=== PATIENT | male | born 1985 ===

== ENCOUNTER 2021-06-22 02:16 | Emergency (ER) | payer BC, OTHER ==
--- NOTE | 2021-06-22 04:11 | EDM.PDOC ---
ED HPI GENERAL MEDICAL PROBLEM - General Chief Complaint: General Stated Complaint: BLOOD TEST Time Seen by Provider: 06/22/21 02:30 Source of Information: Reports: Patient History Limitations: Reports: No Limitations, Intoxication - History of Present Illness INITIAL COMMENTS - FREE TEXT/NARRATIVE: c/o blackout pt and drinking, they live 8 miles from [place] and 7 miles from [place]. A college son drove them from their home to a restaurant in [place] where they ate dinner and drank alcohol pt's reported they drank 4-5 vodkas each, pt reported to RN that he drank 12 beers reports that they do not drink daily, pt states he drinks 2-3 beers daily and "might as well admit it" their son and a friend left the restaurant before they did, someone else drove them home although they do not remember who drove them home or how they got home they are concerned that they cannot remember what happened, says this has not happened before, concerned that someone may have slipped Rohypnol (flunitrazepam) sedative into their drinks a friend is with them who drove them here to the ED - Related Data Allergies Allergy/AdvReac Type Severity Reaction Status Date / Time No Known Allergies Allergy Verified 06/22/21 02:33 Home Meds: Home Meds NK [No Known Home Meds] 06/22/21 [History] Social & Family History - Tobacco Use Tobacco Use Status *Q: Never Tobacco User - Caffeine Use Caffeine Use: Reports: Coffee, Soda - Alcohol Use Days Per Week of Alcohol Use: 7 Number of Drinks Per Day: 3 Total Drinks Per Week: 21 - Recreational Drug Use Recreational Drug Use: No ED ROS GENERAL - Review of Systems Review Of Systems: See Below Constitutional: Reports: No Symptoms, Other (denies any systems except memory gap) HEENT: Reports: No Symptoms Respiratory: Reports: No Symptoms Cardiovascular: Reports: No Symptoms Endocrine: Reports: No Symptoms GI/Abdominal: Reports: No Symptoms : Reports: No Symptoms Musculoskeletal: Reports: No Symptoms Skin: Reports: No Symptoms Neurological: Reports: No Symptoms Psychiatric: Reports: No Symptoms Hematologic/Lymphatic: Reports: No Symptoms Immunologic: Reports: No Symptoms ED EXAM, GENERAL - Physical Exam Exam: See Below Exam Limited By: No Limitations General Appearance: Alert, No Apparent Distress Ears: Hearing Grossly Normal Nose: Normal Inspection Throat/Mouth: Normal Inspection, Normal Voice, No Airway Compromise Head: Atraumatic, Normocephalic, Other (cheeks flushed) Neck: Normal Inspection, Supple, Non-Tender Respiratory/Chest: No Respiratory Distress, Lungs Clear, Normal Breath Sounds, No Accessory Muscle Use Cardiovascular: Regular Rate, Rhythm, No Edema, No Gallop, No Murmur GI/Abdominal: Soft, Non-Tender Back Exam: Normal Inspection Extremities: Normal Inspection, Normal Range of Motion, Non-Tender, No Pedal Edema Neurological: Alert, CN II-XII Intact, No Motor/Sensory Deficits Skin Exam: Warm, Dry, Intact, Normal Color, No Rash Lymphatic: No Adenopathy Course - Vital Signs Last Recorded V/S: Last Vital Signs Temp 36.7 C 06/22/21 02:34 Pulse 95 06/22/21 02:34 Resp 18 06/22/21 02:34 BP 143/97 H 06/22/21 02:34 Pulse Ox 94 L 06/22/21 02:34 - Orders/Labs/Meds Labs: Laboratory Tests 06/22/21 06/22/21 Range/Units 03:04 03:19 Urine Opiates Screen Negative (NEGATIVE) Ur Oxycodone Screen Negative (NEGATIVE) Ur Propoxyphene Screen Negative (NEGATIVE) Ur Barbituates Screen Negative (NEGATIVE) Ur Tricyclics Screen Negative (NEGATIVE) Ur Phencyclidine Scrn Negative (NEGATIVE) Ur Amphetamine Screen Negative (NEGATIVE) Urine MDMA Screen Negative (NEGATIVE) U Benzodiazepines Scrn Negative (NEGATIVE) U Cocaine Metab Screen Negative (NEGATIVE) U Marijuana (THC) Screen Negative (NEGATIVE) Ethyl Alcohol 0.32 H* (<0.03) % - Re-Assessments/Exams Free Text/Narrative Re-Assessment/Exam: 06/22/21 04:20 need for alc tx discussed, that blackouts are a threshold for alc tx Departure - Departure Time of Disposition: 04:05 Disposition: Home, Self-Care 01 Condition: Fair Clinical Impression: Blackout spell, Alcohol intoxication - Discharge Information *PRESCRIPTION DRUG MONITORING PROGRAM REVIEWED*: Not Applicable *COPY OF PRESCRIPTION DRUG MONITORING REPORT IN PATIENT SPIKE: Not Applicable Instructions: Binge-Drinking Information, Adult, Alcohol Intoxication Referrals: PCP,None [Primary Care Provider] - Forms: ED Department Discharge Additional Instructions: Your alcohol level is 320, which is 4 times the legal limit of 80. Blackout spells occur when alcohol level are over 160 and occur 50% of the time when they are over 220. Alcohol levels drop about 20 points per hour, which will take to approximately 3:15 pm before you can legally drive. One of the criteria for alcohol impairment and need for alcohol treatment is blackout spells. See Nano Ramirez or Dr Kelly in the next week for further evaluation and recommendations. Sepsis Event Note (ED) - Evaluation Sepsis Screening Result: No Definite Risk - Focused Exam Vital Signs: Vital Signs Temp Pulse Resp BP Pulse Ox 06/22/21 02:34 36.7 C 95 18 143/97 H 94 L
== END 2021-06-22 04:11 | disposition home or self-care (01) ==
LOC: FB.ED 02:16
DX: F10.129 Alcohol abuse with intoxication, unspecified (principal); Y90.0 Blood alcohol level of less than 20 mg/100 ml
CPT/HCPCS: 36415; 80305-QW; 80307; 99284

== ENCOUNTER 2021-11-02 16:56 | Inpatient (IN) | payer OTHER ==
[2021-11-02] MEDS ORDERED: Morphine 4 MG/ML VIAL IVPUSH STA (17:14)
[2021-11-02] MEDS ORDERED: Ondansetron 4 MG/2 ML SDV IVPUSH STA (17:14)
[2021-11-02] MEDS ORDERED: Sodium Chloride 0.9% 1,000 ML IV SCH (17:15)
[2021-11-02] MEDS ORDERED: Iopamidol 755 MG/ML 150 ML Bottle IV ONE (17:19)
[2021-11-02] MEDS: Sodium Chloride 0.9% 10 ML Syringe FLUSH PRN (17:25)
--- NOTE | 2021-11-02 17:26 | EDM.PDOC ---
ED HPI GENERAL MEDICAL PROBLEM - General Chief Complaint: Abdominal Pain Stated Complaint: ABD PAIN Time Seen by Provider: 11/02/21 17:00 Source of Information: Reports: Patient History Limitations: Reports: No Limitations - History of Present Illness INITIAL COMMENTS - FREE TEXT/NARRATIVE: Patient is a 36 YO WM who presented to the ED because of abdominal pain which started at 0400. The pain is cramping, 9/10, with associated nausea but no vomiting.The pain is over the RLQ/LLQ and suprapubic area. He is otherwise healthy and is not on any medications.There is no fever but has chills. No urinary symptoms or changes in bowel movement. Lower abdomen Pain Score (Numeric/FACES): 9 - Related Data Allergies Allergy/AdvReac Type Severity Reaction Status Date / Time No Known Allergies Allergy Verified 11/02/21 17:10 Home Meds: Home Meds NK [No Known Home Meds] 06/22/21 [History] Social & Family History - Caffeine Use Caffeine Use: Reports: Coffee, Soda ED ROS GENERAL - Review of Systems Review Of Systems: See Below Constitutional: Reports: No Symptoms HEENT: Reports: No Symptoms Respiratory: Reports: No Symptoms Cardiovascular: Reports: No Symptoms Endocrine: Reports: No Symptoms GI/Abdominal: Reports: Abdominal Pain, Nausea Skin: Reports: No Symptoms Neurological: Reports: No Symptoms Psychiatric: Reports: No Symptoms Hematologic/Lymphatic: Reports: No Symptoms ED EXAM, GI/ABD - Physical Exam Exam: See Below Exam Limited By: No Limitations General Appearance: Alert Ears: Normal External Exam, Normal Canal, Hearing Grossly Normal Nose: Normal Inspection, Normal Mucosa, No Blood Throat/Mouth: Normal Inspection, Normal Lips, Normal Teeth, Normal Gums Head: Atraumatic, Normocephalic Neck: Normal Inspection, Supple, Non-Tender, Full Range of Motion Respiratory/Chest: No Respiratory Distress, Lungs Clear, Normal Breath Sounds, No Accessory Muscle Use, Chest Non-Tender Cardiovascular: Normal Peripheral Pulses, Regular Rate, Rhythm, No Edema, No Gallop, No JVD, No Murmur, No Rub GI/Abdominal Exam: Normal Bowel Sounds, Soft, No Organomegaly, No Distention, No Abnormal Bruit, Other (tenderness over the RLQ/LLQ and suprpubic area) Extremities: Normal Inspection, Normal Range of Motion, Non-Tender, No Pedal Edema, Normal Capillary Refill Neurological: Alert, Oriented, CN II-XII Intact, Normal Cognition, Normal Gait, Normal Reflexes, No Motor/Sensory Deficits Psychiatric: Normal Affect, Normal Mood Skin Exam: Warm, Intact, Normal Color Lymphatic: No Adenopathy Course - Vital Signs Text/Narrative:: Lab/CT abd pelvis result- NS 1 L bolus Zofran 4 mg IV x1 Morphine 4 mg IV x1 Dilaudid 1 mg IV x1 Surgery consult was done with Dr. West of [place] who suggested conservative management for now: IVF,IV antibiotics, antiemetics and pain control. NPO then advance to soft diet. He will have a colonoscopy as an outpatient. Last Recorded V/S: Last Vital Signs Temp 36.8 C 11/03/21 06:45 Pulse 91 11/03/21 04:00 Resp 18 11/03/21 04:00 BP 116/72 11/03/21 04:00 Pulse Ox 94 L 11/03/21 04:00 - Orders/Labs/Meds Orders: Active Orders 24 hr Category Date Time Status Patient Status [ADT] Routine ADT 11/02/21 18:27 Active Oxygen Therapy [RC] PRN Care 11/02/21 18:27 Active Pulse Oximetry [RC] PRN Care 11/02/21 18:28 Active VTE/DVT Education [RC] Per Unit Routine Care 11/02/21 18:27 Active Vital Signs [RC] Q4H Care 11/02/21 18:27 Active Acetaminophen/oxyCODONE [Percocet 325-5 MG] Med 11/02/21 18:26 Active 2 tab PO Q4H PRN HYDROmorphone [Dilaudid] Med 11/02/21 18:26 Active 1 mg IVPUSH Q4H PRN Ketorolac [Toradol] Med 11/02/21 18:26 Active 30 mg IVPUSH Q8H PRN Ondansetron [Zofran] Med 11/02/21 18:26 Active 4 mg IV Q4H PRN Sodium Chloride 0.9% [Normal Saline] 1,000 ml Med 11/02/21 17:15 Active IV ASDIRECTED Sodium Chloride 0.9% [Normal Saline] 1,000 ml Med 11/02/21 18:30 Active IV ASDIRECTED Sodium Chloride 0.9% [Saline Flush] Med 11/02/21 17:13 Active 10 ml FLUSH ASDIRECTED PRN Saline Lock Insert [OM.PC] Routine Oth 11/02/21 17:13 Ordered Sequential Compression Device [OM.PC] Per Unit Routine Oth 11/02/21 18:28 Ordered Resuscitation Status Routine Resus Stat 11/02/21 18:26 Ordered Medication Orders Hydromorphone HCl (Hydromorphone 2 Mg/Ml Sdv) 1 mg IVPUSH Q4H PRN PRN Reason: Pain Sodium Chloride (Normal Saline) 1,000 mls @ 999 mls/hr IV ASDIRECTED [facility] Last Admin: 11/02/21 17:25 Dose: 999 mls/hr Documented by: JUAN JOSÉ Sodium Chloride (Normal Saline) 1,000 mls @ 125 mls/hr IV ASDIRECTED [facility] Last Admin: 11/03/21 07:35 Dose: 125 mls/hr Documented by: Infusion: 11/03/21 07:35 Dose: 125 mls/hr Documented by: Admin: 11/03/21 03:05 Dose: 125 mls/hr Documented by: Infusion: 11/03/21 03:05 Dose: 125 mls/hr Documented by: Admin: 11/02/21 18:35 Dose: 125 mls/hr Documented by: JUAN JOSÉ Piperacillin Sod/Tazobactam (Sod 4.5 gm/ Sodium Chloride) 100 mls @ 200 mls/hr IV Q6H [facility] Last Admin: 11/03/21 07:36 Dose: 200 mls/hr Documented by: Admin: 11/03/21 01:30 Dose: 200 mls/hr Documented by: LANCE Ketorolac Tromethamine (Ketorolac 30 Mg/Ml Sdv) 30 mg IVPUSH Q8H PRN PRN Reason: Pain Stop: 11/07/21 18:31 Last Admin: 11/02/21 19:45 Dose: 30 mg Documented by: JUAN JOSÉ Ondansetron HCl (Ondansetron 4 Mg/2 Ml Sdv) 4 mg IV Q4H PRN PRN Reason: Nausea/Vomiting Oxycodone/Acetaminophen (Acetaminophen/Oxycodone 325-5 Mg Tab) 2 tab PO Q4H PRN PRN Reason: Pain (moderate 4-6) Last Admin: 11/03/21 05:41 Dose: 2 tab Documented by: Admin: 11/03/21 00:13 Dose: 2 tab Documented by: LANCE Sodium Chloride (Sodium Chloride 0.9% 10 Ml Syringe) 10 ml FLUSH ASDIRECTED PRN PRN Reason: Keep Vein Open Last Admin: 11/02/21 17:25 Dose: 10 ml Documented by: JUAN JOSÉ Labs: Laboratory Tests 11/02/21 Range/Units 18:15 Urine Color Yellow (YELLOW) Urine Appearance Slightly cloudy (CLEAR) Urine pH 6.0 (5.0-6.5) Ur Specific [place] 1.020 (1.010-1.025) Urine Protein Negative (NEGATIVE) mg/dL Urine Glucose (UA) Normal (NORMAL) mg/dL Urine Ketones Negative (NEGATIVE) mg/dL Urine Occult Blood Negative (NEGATIVE) Urine Nitrite Negative (NEGATIVE) Urine Bilirubin Negative (NEGATIVE) Urine Urobilinogen 1 H (NEGATIVE) mg/dL Ur Leukocyte Esterase Negative (NEGATIVE) Urine RBC 0-5 (0-5) Urine WBC 0-5 (0-5) Ur Squamous Epith Cells Occasional (NS,R,O) Urine Bacteria Few H (NS) Meds: Medications Generic Name Dose Route Start Last Admin Trade Name Freq PRN Reason Stop Dose Admin Hydromorphone HCl 1 mg 11/02/21 18:26 Hydromorphone 2 Mg/Ml Sdv IVPUSH Q4H PRN Pain Sodium Chloride 1,000 mls @ 999 mls/hr 11/02/21 17:15 11/02/21 17:25 Normal Saline IV 999 mls/hr ASDIRECTED DIANE Administration Sodium Chloride 1,000 mls @ 125 mls/hr 11/02/21 18:30 11/03/21 07:35 Normal Saline IV 125 mls/hr ASDIRECTED DIANE Administration Piperacillin Sod/Tazobactam 100 mls @ 200 mls/hr 11/03/21 02:00 11/03/21 07:36 Sod 4.5 gm/ Sodium Chloride IV 200 mls/hr Q6H DIANE Administration Ketorolac Tromethamine 30 mg 11/02/21 18:26 11/02/21 19:45 Ketorolac 30 Mg/Ml Sdv IVPUSH 11/07/21 18:31 30 mg Q8H PRN Administration Pain Ondansetron HCl 4 mg 11/02/21 18:26 Ondansetron 4 Mg/2 Ml Sdv IV Q4H PRN Nausea/Vomiting Oxycodone/Acetaminophen 2 tab 11/02/21 18:26 11/03/21 05:41 Acetaminophen/Oxycodone 325-5 Mg Tab PO 2 tab Q4H PRN Administration Pain (moderate 4-6) Sodium Chloride 10 ml 11/02/21 17:13 11/02/21 17:25 Sodium Chloride 0.9% 10 Ml Syringe FLUSH 10 ml ASDIRECTED PRN Administration Keep Vein Open Discontinued Medications Generic Name Dose Route Start Last Admin Trade Name Freq PRN Reason Stop Dose Admin Hydromorphone HCl 2 mg 11/02/21 18:03 11/02/21 20:19 Hydromorphone 2 Mg/Ml Sdv IVPUSH 11/02/21 18:04 Not Given NOW STA Hydromorphone HCl 1 mg 11/02/21 18:04 11/02/21 18:26 Hydromorphone 2 Mg/Ml Sdv IVPUSH 11/02/21 18:05 1 mg NOW STA Administration Piperacillin Sod/Tazobactam 100 mls @ 200 mls/hr 11/02/21 18:30 11/02/21 1 9:47 Sod 4.5 gm/ Sodium Chloride IV 200 mls/hr Q6H DIANE Administration Iopamidol 150 ml 11/02/21 17:19 11/02/21 17:46 Iopamidol 755 Mg/Ml 150 Ml Bottle IV 11/02/21 17:20 138 ml ONETIME ONE Administration Morphine Sulfate 4 mg 11/02/21 17:14 11/02/21 17:27 Morphine 4 Mg/Ml Vial IVPUSH 11/02/21 17:15 4 mg NOW STA Administration Ondansetron HCl 4 mg 11/02/21 17:14 11/02/21 17:25 Ondansetron 4 Mg/2 Ml Sdv IVPUSH 11/02/21 17:15 4 mg NOW STA Administration Departure - Departure Time of Disposition: 18:30 Disposition: Refer to Observation Condition: Good Clinical Impression: Diverticulitis, Colitis - Discharge Information Sepsis Event Note (ED) - Evaluation Sepsis Screening Result: Possible Sepsis Risk - My Orders Last 24 Hours: My Active Orders 11/02/21 17:13 Sodium Chloride 0.9% [Saline Flush] 10 ml FLUSH ASDIRECTED PRN Saline Lock Insert [OM.PC] Routine 11/02/21 17:15 Sodium Chloride 0.9% [Normal Saline] 1,000 ml IV ASDIRECTED 11/02/21 18:26 Acetaminophen/oxyCODONE [Percocet 325-5 MG] 2 tab PO Q4H PRN HYDROmorphone [Dilaudid] 1 mg IVPUSH Q4H PRN Ketorolac [Toradol] 30 mg IVPUSH Q8H PRN Ondansetron [Zofran] 4 mg IV Q4H PRN Resuscitation Status Routine 11/02/21 18:27 Patient Status [ADT] Routine Oxygen Therapy [RC] PRN VTE/DVT Education [RC] Per Unit Routine Vital Signs [RC] Q4H 11/02/21 18:28 Pulse Oximetry [RC] PRN Sequential Compression Device [OM.PC] Per Unit Routine 11/02/21 18:30 Sodium Chloride 0.9% [Normal Saline] 1,000 ml IV ASDIRECTED - Assessment/Plan Last 24 Hours: My Active Orders 11/02/21 17:13 Sodium Chloride 0.9% [Saline Flush] 10 ml FLUSH ASDIRECTED PRN Saline Lock Insert [OM.PC] Routine 11/02/21 17:15 Sodium Chloride 0.9% [Normal Saline] 1,000 ml IV ASDIRECTED 11/02/21 18:26 Acetaminophen/oxyCODONE [Percocet 325-5 MG] 2 tab PO Q4H PRN HYDROmorphone [Dilaudid] 1 mg IVPUSH Q4H PRN Ketorolac [Toradol] 30 mg IVPUSH Q8H PRN Ondansetron [Zofran] 4 mg IV Q4H PRN Resuscitation Status Routine 11/02/21 18:27 Patient Status [ADT] Routine Oxygen Therapy [RC] PRN VTE/DVT Education [RC] Per Unit Routine Vital Signs [RC] Q4H 11/02/21 18:28 Pulse Oximetry [RC] PRN Sequential Compression Device [OM.PC] Per Unit Routine 11/02/21 18:30 Sodium Chloride 0.9% [Normal Saline] 1,000 ml IV ASDIRECTED
[2021-11-02] MEDS ORDERED: HYDROmorphone 2 MG/ML SDV IVPUSH STA ×2 (18:03→18:04)
[2021-11-02] MEDS ORDERED: HYDROmorphone 2 MG/ML SDV IVPUSH PRN (18:26)
[2021-11-02] MEDS ORDERED: Ondansetron 4 MG/2 ML SDV IV PRN (18:26)
[2021-11-02] MEDS ORDERED: Piperacillin/Tazobactam 4.5 GM in Sodium Chloride 0.9% 100 ML IV SCH (18:30)
[2021-11-02] MEDS: Sodium Chloride 0.9% 1,000 ML IV SCH (18:35)
--- NOTE | 2021-11-02 18:49 | CT ---
INDICATION: Right lower quadrant, left lower quadrant, suprapubic pain, elevated white blood count. CT ABDOMEN AND PELVIS WITH CONTRAST: Spiral 3.75 mm axial sections were obtained through the abdomen and pelvis with 138 mL [id number] at 2 mL/second with sagittal and coronal reconstructions, 11/02/21 - no comparisons. TOTAL EXAM DLP: 1889.88 mGy/cm. Lower lung roberts and pleural spaces visualized appeared normal. The heart did not appear enlarged. No pericardial effusion was seen. The liver, gallbladder, adrenal glands, spleen, pancreas, and for the most part, kidneys appeared normal (a tiny low-density lesion in the lower pole of the right kidney may represent a tiny cyst). Retroperitoneal lymphadenopathy is mild and nonspecific, but could be related to previous infection. The appendix was visualized on axial images 95 through 109 and was mildly prominent in diameter, measuring up to 8.5 mm. However, no periappendiceal fat stranding was noted to strongly suggest appendicitis. There is however noted in the sigmoid colon, what appears to be a diverticulum with marked thickening of the wall of the sigmoid colon extending into the rectosigmoid area slightly and with extensive pericolonic fat stranding with several air bubbles and a very small linear collection of fluid, which could represent the beginnings of an abscess seen on axial images 97 through 107. Findings may represent colitis with perforation or possibly diverticulitis with perforation. It is involving a long-segment of the sigmoid colon. No gross free air was seen, however - free air was limited to bubbles in the area of fat stranding and increased linear density. No gross ascites was seen, but there is some minimal free fluid posteriorly and inferiorly in the pelvis, which may be related to this process. There is also thickening of the wall of the urinary bladder. This could represent cystitis and should be correlated clinically. No definite herniation is seen. No additional mass lesions, organomegaly or free fluid collections were identified in the abdomen or pelvis. IMPRESSION: 1. Findings felt to be most compatible with colitis, possibly with diverticulitis and with peritonitis and very minimal abscess formation with perforation suggested versus gas-forming organism infection. No gross perforation was seen, as there is no free air extending anteriorly in the abdomen. There is, however, peritonitis and possible beginnings of a small abscess adjacent to this process, as noted above. 2. Thickened wall of urinary bladder could represent cystitis. Report was called to Dr. Morales at 1815 hours, 11/02/21. [facility]
[2021-11-02] MEDS: Ketorolac 30 MG/ML SDV IVPUSH PRN (19:45)
[2021-11-03] MEDS: Acetaminophen/oxyCODONE 325-5 MG Tab PO PRN ×5 (00:13→20:29)
[2021-11-03] MEDS: Piperacillin/Tazobactam 4.5 GM in Sodium Chloride 0.9% 100 ML IV SCH ×4 (01:30→20:28)
[2021-11-03] MEDS: Sodium Chloride 0.9% 1,000 ML IV SCH ×2 (03:05→07:35)
[2021-11-03] MEDS: Ketorolac 30 MG/ML SDV IVPUSH PRN ×2 (08:15→16:18)
--- NOTE | 2021-11-03 08:21 | PCM.HP.2 ---
H&P History of Present Illness - General Date of Service: 11/03/21 Admit Problem/Dx: Admission Diagnosis/Problem Admission Diagnosis/Problem Diverticulitis Source of Information: Patient, Old Records History Limitations: Reports: No Limitations - History of Present Illness Initial Comments - Free Text/Narative: This is a healthy 36-year-old male patient that 4 AM yesterday morning woke up with some abdominal pain, around the lower abdomen. He said he went back to sleep and then he got up and went to the bathroom had a bowel movement which was normal. After that he had really bad pain. He was seen in the clinic by Haydee Mcnulty and then sent to the ER to rule out an appendectomy. Had a CT scan that showed peritonitis possible diverticulitis with minimal abscess formation and perforation suggested. The ER doc call the surgeon in [place] who reviewed everything and told to put on n.p.o. and put on antibiotics for now and then observe. Patient is on pain pills and he says his feel a bit better. He says when he goes off the pain pills he has fevers and chills and sweats. He has no dysuria, pyuria, hematuria. No diarrhea or blood in his stool. History of div erticulitis. He says azeb had it. Lower abdomen Pain Score (Numeric/FACES): 3 - Related Data Allergies/Adverse Reactions: Allergies Allergy/AdvReac Type Severity Reaction Status Date / Time No Known Allergies Allergy Verified 11/02/21 17:10 Home Medications: Home Meds NK [No Known Home Meds] 06/22/21 [History] Past Medical History Musculoskeletal History: Reports: None Endocrine/Metabolic History: Reports: Obesity/BMI 30+ - Past Surgical History HEENT Surgical History: Reports: Oral Surgery, Tonsillectomy Other HEENT Surgeries/Procedures: [place] tooth removal Endocrine Surgical History: Reports: None Musculoskeletal Surgical History: Reports: ORIF Other Musculoskeletal Surgeries/Procedures:: L ankle repair Social & Family History - Family History Family Medical History: No Pertinent Family History - Tobacco Use Tobacco Use Status *Q: Never Tobacco User Second Hand Smoke Exposure: No - Caffeine Use Caffeine Use: Reports: Soda Other Caffeine Use: at least 3 soda in a week - Alcohol Use Days Per Week of Alcohol Use: 3 Number of Drinks Per Day: 6 Total Drinks Per Week: 18 - Recreational Drug Use Recreational Drug Use: No H&P Review of Systems - Review of Systems: Review Of Systems: See Below General: Reports: Fever, Chills, Fatigue, Diaphoresis HEENT: Reports: No Symptoms Pulmonary: Reports: No Symptoms Cardiovascular: Reports: No Symptoms Gastrointestinal: Reports: Abdominal Pain Genitourinary: Reports: No Symptoms Musculoskeletal: Reports: No Symptoms Skin: Reports: No Symptoms Psychiatric: Reports: No Symptoms Neurological: Reports: No Symptoms Hematologic/Lymphatic: Reports: No Symptoms Immunologic: Reports: No Symptoms Exam - Exam Exam: See Below - Vital Signs Vital Signs: Last Vital Signs Temp 98.2 F 11/03/21 06:45 Pulse 91 11/03/21 04:00 Resp 18 11/03/21 04:00 BP 116/72 11/03/21 04:00 Pulse Ox 94 L 11/03/21 04:00 Weight: 268 lb 1 oz - Exam General: Alert, Oriented HEENT: Hearing Intact, Posterior Pharynx Clear, TMs Clear Neck: Supple, Trachea Midline Lungs: Clear to Auscultation, Normal Respiratory Effort Cardiovascular: Regular Rate, Regular Rhythm. No: Systolic Murmur GI/Abdominal Exam: Soft, Other (Mild pain in the lower quadrants right, left, suprapubic. No rebound or guarding. He is on pain medication at this time.). No: Normal Bowel Sounds, Distended Back Exam: Normal Inspection Extremities: Normal Inspection, Non-Tender, No Pedal Edema Skin: Warm, Dry, Intact Neurological: Normal Speech Neuro Extensive - Mental Status: Alert, Oriented x3, Normal Mood/Affect, Normal Cognition Psychiatric: Alert, Normal Affect, Normal Mood - Patient Data Lab Results Last 24 hrs: Laboratory Results - last 24 hr 11/02/21 11/03/21 11/03/21 Range/Units 18:15 06:25 06:25 WBC 15.4 H (3.2-10.1) x10-3/uL RBC 3.25 L (3.90-5.90) x10(6)uL Hgb 11.2 L (12.9-17.7) g/dL Hct 33.4 L (38.3-50.1) % MCV 102.8 H (80.8-98.7) fL MCH 34.4 H (27.0-33.3) pg MCHC 33.4 (28.7-35.3) g/dL RDW 12.8 (12.4-15.0) % Plt Count 224 (117-477) x10(3)uL MPV 7.2 (6.7-11.0) fL Add Manual Diff Yes Neutrophils % (Manual) 81 (46-82) % Lymphocytes % (Manual) 10 L (13-37) % Monocytes % (Manual) 9 (4-12) % Sodium 135 (135-145) mmol/L Potassium 3.3 L (3.5-5.3) mmol/L Chloride 99 L (100-110) mmol/L Carbon Dioxide 27 (21-32) mmol/L BUN 9 (7-18) mg/dL Creatinine 0.9 (0.70-1.30) mg/dL Est Cr Clr Drug Dosing 140.65 mL/min Estimated GFR (MDRD) > 60 (>60) BUN/Creatinine Ratio 10.0 (9-20) Glucose 128 H (80-116) mg/dL Calcium 8.1 L (8.6-10.2) mg/dL Urine Color Yellow (YELLOW) Urine Appearance Slightly cloudy (CLEAR) Urine pH 6.0 (5.0-6.5) Ur Specific [place] 1.020 (1.010-1.025) Urine Protein Negative (NEGATIVE) mg/dL Urine Glucose (UA) Normal (NORMAL) mg/dL Urine Ketones Negative (NEGATIVE) mg/dL Urine Occult Blood Negative (NEGATIVE) Urine Nitrite Negative (NEGATIVE) Urine Bilirubin Negative (NEGATIVE) Urine Urobilinogen 1 H (NEGATIVE) mg/dL Ur Leukocyte Esterase Negative (NEGATIVE) Urine RBC 0-5 (0-5) Urine WBC 0-5 (0-5) Ur Squamous Epith Cells Occasional (NS,R,O) Urine Bacteria Few H (NS) Result Diagrams: 11/03/21 06:25 11/03/21 06:25 Sepsis Event Note - Evaluation Sepsis Screening Result: No Definite Risk - Focused Exam Vital Signs: Vital Signs Temp Pulse Resp BP Pulse Ox 11/03/21 06:45 98.2 F 11/03/21 04:00 98.9 F 91 18 116/72 94 L 11/03/21 01:30 98.1 F 11/03/21 00:15 98.9 F 99 16 129/81 93 L - Problem List (1) Colitis SNOMED Code(s): 97826467 ICD Code: K52.9 - NONINFECTIVE GASTROENTERITIS AND COLITIS, UNSPECIFIED Status: Acute Current Visit: Yes (2) Diverticulitis SNOMED Code(s): 979801753 ICD Code: K57.92 - DVTRCLI OF INTEST, PART UNSP, W/O PERF OR ABSCESS W/O BLEED Status: Acute Current Visit: Yes Problem List Initiated/Reviewed/Updated: Yes Orders Last 24hrs: Active Orders 24 hr Category Date Time Status Patient Status [ADT] Routine ADT 11/02/21 18:27 Active Notify Provider Consults [RC] ASDIRECTED Care 11/03/21 08:17 Ordered Oxygen Therapy [RC] PRN Care 11/02/21 18:27 Active Pulse Oximetry [RC] PRN Care 11/02/21 18:28 Active VTE/DVT Education [RC] Per Unit Routine Care 11/02/21 18:27 Active Vital Signs [RC] Q4H Care 11/02/21 18:27 Active Consult to Physician [CONS] Routine Cons 11/03/21 08:16 Ordered NPO [Nothing Per Oral Diet] [DIET] Diet 11/03/21 Breakfast Active BASIC METABOLIC PANEL,BMP [CHEM] AM Lab 11/04/21 06:00 Ordered CBC WITH AUTO DIFF [HEME] AM Lab 11/04/21 05:11 Ordered Acetaminophen/oxyCODONE [Percocet 325-5 MG] Med 11/02/21 18:26 Active 2 tab PO Q4H PRN Ketorolac [Toradol] Med 11/02/21 18:26 Active 30 mg IVPUSH Q8H PRN NS + KCl 20mEq/L [Normal Saline with 20 mEq KCl] 1,000 Med 11/03/21 08:15 Ordered ml IV ASDIRECTED Ondansetron [Zofran] Med 11/02/21 18:26 Active 4 mg IV Q4H PRN Piperacillin/Tazobactam [Zosyn] 4.5 gm Med 11/03/21 02:00 Active Sodium Chloride 0.9% [Normal Saline AdvBag] 100 ml IV Q6H Sodium Chloride 0.9% [Saline Flush] Med 11/02/21 17:13 Active 10 ml FLUSH ASDIRECTED PRN Saline Lock Insert [OM.PC] Routine Oth 11/02/21 17:13 Ordered Sequential Compression Device [OM.PC] Per Unit Routine Oth 11/02/21 18:28 Ordered Resuscitation Status Routine Resus Stat 11/02/21 18:26 Ordered Medication Orders Piperacillin Sod/Tazobactam (Sod 4.5 gm/ Sodium Chloride) 100 mls @ 200 mls/hr IV Q6H [facility] Last Admin: 11/03/21 07:36 Dose: 200 mls/hr Documented by: Admin: 11/03/21 01:30 Dose: 200 mls/hr Documented by: LANCE Potassium Chloride/Sodium Chloride (Normal Saline With 20 Meq Kcl) 1,000 mls @ 125 mls/hr IV Q8H [facility] Ketorolac Tromethamine (Ketorolac 30 Mg/Ml Sdv) 30 mg IVPUSH Q8H PRN PRN Reason: Pain Stop: 11/07/21 18:31 Last Admin: 11/03/21 08:15 Dose: 30 mg Documented by: Admin: 11/02/21 19:45 Dose: 30 mg Documented by: JUAN JOSÉ Ondansetron HCl (Ondansetron 4 Mg/2 Ml Sdv) 4 mg IV Q4H PRN PRN Reason: Nausea/Vomiting Oxycodone/Acetaminophen (Acetaminophen/Oxycodone 325-5 Mg Tab) 2 tab PO Q4H PRN PRN Reason: Pain (moderate 4-6) Last Admin: 11/03/21 05:41 Dose: 2 tab Documented by: Admin: 11/03/21 00:13 Dose: 2 tab Documented by: LANCE Sodium Chloride (Sodium Chloride 0.9% 10 Ml Syringe) 10 ml FLUSH ASDIRECTED PRN PRN Reason: Keep Vein Open Last Admin: 11/02/21 17:25 Dose: 10 ml Documented by: JUAN JOSÉ Assessment/Plan Comment:: 1. Admit as observation. 2. Reviewed the ER notes and the conversation with surgery. I will consult our local surgeon. 3. N.p.o. until it is okay for him to eat per surgery. 4. Continue the Percocet for pain which is working for him. 5. His potassium slightly low so switch the fluids from normal saline to normal saline with 20 KCl. 6. Recheck CBC and panel late in the a.m. 7. He can be up ad nancy. - Mortality Measure Prognosis:: Good
[2021-11-03] MEDS: NS + KCl 20mEq/L 1,000 ML IV SCH ×3 (08:26→23:55)
--- NOTE | 2021-11-03 15:01 | PCM.CONS ---
H&P History of Present Illness - General Date of Service: 11/03/21 Admit Problem/Dx: Admission Diagnosis/Problem Admission Diagnosis/Problem Diverticulitis Source of Information: Patient, Old Records History Limitations: Reports: No Limitations - History of Present Illness Initial Comments - Free Text/Narative: Felling muck better today, getting pain meds. Pain more localized to LLQ today Onset of Symptoms: Reports: Sudden Symptom Onset Date: 11/02/21 Symptom Onset Time: 04:00 Location: Reports: Abdomen (lower bilaterally) Severity: Severe Associated Symptoms: Reports: Other (bladder pressure) Lower abdomen Pain Score (Numeric/FACES): 2 - Related Data Allergies/Adverse Reactions: Allergies Allergy/AdvReac Type Severity Reaction Status Date / Time No Known Allergies Allergy Verified 11/02/21 17:10 Home Medications: Home Meds NK [No Known Home Meds] 06/22/21 [History] Past Medical History Musculoskeletal History: Reports: None Endocrine/Metabolic History: Reports: Obesity/BMI 30+ - Past Surgical History HEENT Surgical History: Reports: Oral Surgery, Tonsillectomy Other HEENT Surgeries/Procedures: [place] tooth removal Endocrine Surgical History: Reports: None Musculoskeletal Surgical History: Reports: ORIF Other Musculoskeletal Surgeries/Procedures:: L ankle repair Social & Family History - Family History Family Medical History: No Pertinent Family History - Tobacco Use Tobacco Use Status *Q: Never Tobacco User Second Hand Smoke Exposure: No - Caffeine Use Caffeine Use: Reports: Soda Other Caffeine Use: at least 3 soda in a week - Alcohol Use Days Per Week of Alcohol Use: 3 Number of Drinks Per Day: 6 Total Drinks Per Week: 18 - Recreational Drug Use Recreational Drug Use: No H&P Review of Systems - Review of Systems: Review Of Systems: See Below General: Reports: No Symptoms. Denies: Fever, Chills Pulmonary: Reports: No Symptoms Cardiovascular: Reports: No Symptoms Gastrointestinal: Reports: Abdominal Pain (much better today) Exam - Exam Exam: See Below - Vital Signs Vital Signs: Last Vital Signs Temp 99.7 F 11/03/21 12:37 Pulse 89 11/03/21 12:37 Resp 20 11/03/21 12:37 BP 139/94 H 11/03/21 12:37 Pulse Ox 97 11/03/21 12:37 Weight: 121.591 kg - Exam General: Alert, Oriented GI/Abdominal Exam: Soft, Tender (in LLQ without peritoneal signs). No: Hernia, Mass - Patient Data Lab Results Last 24 hrs: Laboratory Results - last 24 hr 11/02/21 11/03/21 11/03/21 Range/Units 18:15 06:25 06:25 WBC 15.4 H (3.2-10.1) x10-3/uL RBC 3.25 L (3.90-5.90) x10(6)uL Hgb 11.2 L (12.9-17.7) g/dL Hct 33.4 L (38.3-50.1) % MCV 102.8 H (80.8-98.7) fL MCH 34.4 H (27.0-33.3) pg MCHC 33.4 (28.7-35.3) g/dL RDW 12.8 (12.4-15.0) % Plt Count 224 (117-477) x10(3)uL MPV 7.2 (6.7-11.0) fL Add Manual Diff Yes Neutrophils % (Manual) 81 (46-82) % Lymphocytes % (Manual) 10 L (13-37) % Monocytes % (Manual) 9 (4-12) % Sodium 135 (135-145) mmol/L Potassium 3.3 L (3.5-5.3) mmol/L Chloride 99 L (100-110) mmol/L Carbon Dioxide 27 (21-32) mmol/L BUN 9 (7-18) mg/dL Creatinine 0.9 (0.70-1.30) mg/dL Est Cr Clr Drug Dosing 140.65 mL/min Estimated GFR (MDRD) > 60 (>60) BUN/Creatinine Ratio 10.0 (9-20) Glucose 128 H (80-116) mg/dL Calcium 8.1 L (8.6-10.2) mg/dL Urine Color Yellow (YELLOW) Urine Appearance Slightly cloudy (CLEAR) Urine pH 6.0 (5.0-6.5) Ur Specific [place] 1.020 (1.010-1.025) Urine Protein Negative (NEGATIVE) mg/dL Urine Glucose (UA) Normal (NORMAL) mg/dL Urine Ketones Negative (NEGATIVE) mg/dL Urine Occult Blood Negative (NEGATIVE) Urine Nitrite Negative (NEGATIVE) Urine Bilirubin Negative (NEGATIVE) Urine Urobilinogen 1 H (NEGATIVE) mg/dL Ur Leukocyte Esterase Negative (NEGATIVE) Urine RBC 0-5 (0-5) Urine WBC 0-5 (0-5) Ur Squamous Epith Cells Occasional (NS,R,O) Urine Bacteria Few H (NS) Result Diagrams: 11/03/21 06:25 11/03/21 06:25 Imaging Impressions Last 24 hrs: CT scan images reviewed Sepsis Event Note - Evaluation Sepsis Screening Result: No Definite Risk - Focused Exam Vital Signs: Vital Signs Temp Temp Pulse Resp BP Pulse Ox 11/03/21 12:37 99.7 F 89 20 139/94 H 97 11/03/21 06:45 98.2 F 11/03/21 04:00 98.9 F 91 18 116/72 94 L Consult PN Assessment/Plan Procedures: Procedures DRUG TEST PRSMV CHEM ANLYZR (06/22/21) DRUG TEST PRSMV DIR OPT OBS (06/22/21) EMERGENCY DEPT VISIT (06/22/21) ROUTINE VENIPUNCTURE (06/22/21) (1) Diverticulitis SNOMED Code(s): 125566034 Code(s): K57.92 - DVTRCLI OF INTEST, PART UNSP, W/O PERF OR ABSCESS W/O BLEED Current Visit: Yes Problem List Initiated/Reviewed/Updated: Yes Plan: Cont IV Zosyn until WBC returns to normal, then switch to oral Cipro/Flagyl for 7-14 days (few days after the symptoms resolve). Colonoscopy 1 month
[2021-11-04] MEDS: Ketorolac 30 MG/ML SDV IVPUSH PRN (00:12)
[2021-11-04] MEDS: Sodium Chloride 0.9% 10 ML Syringe FLUSH PRN ×4 (00:15→21:54)
[2021-11-04] MEDS: Piperacillin/Tazobactam 4.5 GM in Sodium Chloride 0.9% 100 ML IV SCH ×4 (02:06→21:13)
[2021-11-04] MEDS: Acetaminophen/oxyCODONE 325-5 MG Tab PO PRN (03:45)
[2021-11-04] MEDS: NS + KCl 20mEq/L 1,000 ML IV SCH (09:44)
[2021-11-04] MEDS: Ketorolac 30 MG/ML SDV IVPUSH SCH ×2 (09:47→13:42)
--- NOTE | 2021-11-04 12:40 | PCM.SURGPN ---
- General Info Date of Surgery/Procedure: 11/04/21 Functional Status: Reports: Pain Controlled (at a 12/05), Tolerating Diet (clear liquids) - Review of Systems General: Denies: Fever Pulmonary: Reports: No Symptoms Gastrointestinal: Reports: No Symptoms, Flatus, Other (having loose stools). Denies: Abdominal Pain Genitourinary: Reports: No Symptoms - Patient Data Vitals - Most Recent: Last Vital Signs Temp 96.5 F L 11/04/21 12:00 Pulse 87 11/04/21 12:00 Resp 16 11/04/21 12:00 BP 125/65 11/04/21 12:00 Pulse Ox 95 11/04/21 12:00 Weight - Most Recent: 121.591 kg I&O - Last 24 Hours: Intake & Output 11/03/21 11/04/21 11/04/21 22:59 06:59 14:59 Intake Total 497 1425 744 Balance 497 1425 744 Lab Results Last 24 Hrs: Laboratory Results - last 24 hr 11/04/21 11/04/21 Range/Units 06:30 06:30 WBC 16.6 H (3.2-10.1) x10-3/uL RBC 3.20 L (3.90-5.90) x10(6)uL Hgb 11.1 L (12.9-17.7) g/dL Hct 32.3 L (38.3-50.1) % MCV 101.1 H (80.8-98.7) fL MCH 34.6 H (27.0-33.3) pg MCHC 34.2 (28.7-35.3) g/dL RDW 12.9 (12.4-15.0) % Plt Count 214 (117-477) x10(3)uL MPV 7.0 (6.7-11.0) fL Add Manual Diff Yes Neutrophils % (Manual) 84 H (46-82) % Lymphocytes % (Manual) 6 L (13-37) % Monocytes % (Manual) 10 (4-12) % Sodium 134 L (135-145) mmol/L Potassium 3.4 L (3.5-5.3) mmol/L Chloride 99 L (100-110) mmol/L Carbon Dioxide 25 (21-32) mmol/L BUN 9 (7-18) mg/dL Creatinine 0.8 (0.70-1.30) mg/dL Est Cr Clr Drug Dosing 158.23 mL/min Estimated GFR (MDRD) > 60 (>60) BUN/Creatinine Ratio 11.3 (9-20) Glucose 127 H (80-116) mg/dL Calcium 8.5 L (8.6-10.2) mg/dL Med Orders - Current: Current Medications Piperacillin Sod/Tazobactam (Sod 4.5 gm/ Sodium Chloride) 100 mls @ 200 mls/hr IV Q6H [facility] Last Admin: 11/04/21 07:31 Dose: 200 mls/hr Documented by: Potassium Chloride/Sodium Chloride (Normal Saline With 20 Meq Kcl) 1,000 mls @ 125 mls/hr IV Q8H [facility] Last Admin: 11/04/21 09:44 Dose: 125 mls/hr Documented by: Ketorolac Tromethamine (Ketorolac 30 Mg/Ml Sdv) 30 mg IVPUSH Q6H [facility] Stop: 11/07/21 18:31 Last Admin: 11/04/21 09:47 Dose: 30 mg Documented by: Ondansetron HCl (Ondansetron 4 Mg/2 Ml Sdv) 4 mg IV Q4H PRN PRN Reason: Nausea/Vomiting Oxycodone/Acetaminophen (Acetaminophen/Oxycodone 325-5 Mg Tab) 2 tab PO Q4H PRN PRN Reason: Pain (moderate 4-6) Last Admin: 11/04/21 03:45 Dose: 2 tab Documented by: Sodium Chloride (Sodium Chloride 0.9% 10 Ml Syringe) 10 ml FLUSH ASDIRECTED PRN PRN Reason: Keep Vein Open Last Admin: 11/04/21 09:58 Dose: 10 ml Documented by: Discontinued Medications Hydromorphone HCl (Hydromorphone 2 Mg/Ml Sdv) 2 mg IVPUSH NOW STA Stop: 11/02/21 18:04 Last Admin: 11/02/21 20:19 Dose: Not Given Documented by: Hydromorphone HCl (Hydromorphone 2 Mg/Ml Sdv) 1 mg IVPUSH NOW STA Stop: 11/02/21 18:05 Last Admin: 11/02/21 18:26 Dose: 1 mg Documented by: Hydromorphone HCl (Hydromorphone 2 Mg/Ml Sdv) 1 mg IVPUSH Q4H PRN PRN Reason: Pain Sodium Chloride (Normal Saline) 1,000 mls @ 999 mls/hr IV ASDIRECTED [facility] Last Admin: 11/02/21 17:25 Dose: 999 mls/hr Documented by: Sodium Chloride (Normal Saline) 1,000 mls @ 125 mls/hr IV ASDIRECTED [facility] Last Admin: 11/03/21 07:35 Dose: 125 mls/hr Documented by: Piperacillin Sod/Tazobactam (Sod 4.5 gm/ Sodium Chloride) 100 mls @ 200 mls/hr IV Q6H [facility] Last Admin: 11/02/21 19:47 Dose: 200 mls/hr Documented by: Iopamidol (Iopamidol 755 Mg/Ml 150 Ml Bottle) 150 ml IV ONETIME ONE Stop: 11/02/21 17:20 Last Admin: 11/02/21 17:46 Dose: 138 ml Documented by: Ketorolac Tromethamine (Ketorolac 30 Mg/Ml Sdv) 30 mg IVPUSH Q8H PRN PRN Reason: Pain Stop: 11/07/21 18:31 Last Admin: 11/04/21 00:12 Dose: 30 mg Documented by: Morphine Sulfate (Morphine 4 Mg/Ml Vial) 4 mg IVPUSH NOW STA Stop: 11/02/21 17:15 Last Admin: 11/02/21 17:27 Dose: 4 mg Documented by: Ondansetron HCl (Ondansetron 4 Mg/2 Ml Sdv) 4 mg IVPUSH NOW STA Stop: 11/02/21 17:15 Last Admin: 11/02/21 17:25 Dose: 4 mg Documented by: - Exam General: Alert, Oriented GI/Abdominal Exam: Soft, Non-Tender. No: Guarding, Rebound Sepsis Event Note - Evaluation Sepsis Screening Result: No Definite Risk - Focused Exam Vital Signs: Vital Signs Temp Temp Temp Pulse Resp BP Pulse Ox 11/04/21 12:00 96.5 F L 87 16 125/65 95 11/04/21 07:39 98.4 F 90 16 147/89 H 96 11/04/21 03:39 96.6 F L 90 16 141/82 H 95 - Problem List & Annotations (1) Diverticulitis SNOMED Code(s): 434556615 Code(s): K57.92 - DVTRCLI OF INTEST, PART UNSP, W/O PERF OR ABSCESS W/O BLEED Status: Acute Current Visit: Yes - Problem List Review Problem List Initiated/Reviewed/Updated: Yes - My Orders Last 24 Hours: Active Orders 24 hr Category Date Time Status Clear Liquid Diet [DIET] Diet 11/04/21 Breakfast Active BASIC METABOLIC PANEL,BMP [CHEM] Routine Lab 11/05/21 06:00 Ordered CBC WITH AUTO DIFF [HEME] Routine Lab 11/05/21 06:00 Ordered Ketorolac [Toradol] Med 11/04/21 08:15 Active 30 mg IVPUSH Q6H Medication Orders Piperacillin Sod/Tazobactam (Sod 4.5 gm/ Sodium Chloride) 100 mls @ 200 mls/hr IV Q6H [facility] Last Admin: 11/04/21 07:31 Dose: 200 mls/hr Documented by: Admin: 11/04/21 02:06 Dose: 200 mls/hr Documented by: Admin: 11/03/21 20:28 Dose: 200 mls/hr Documented by: Admin: 11/03/21 13:51 Dose: 200 mls/hr Documented by: Admin: 11/03/21 07:36 Dose: 200 mls/hr Documented by: Admin: 11/03/21 01:30 Dose: 200 mls/hr Documented by: LANCE Potassium Chloride/Sodium Chloride (Normal Saline With 20 Meq Kcl) 1,000 mls @ 125 mls/hr IV Q8H [facility] Last Admin: 11/04/21 09:44 Dose: 125 mls/hr Documented by: Infusion: 11/04/21 07:55 Dose: 125 mls/hr Documented by: Admin: 11/03/21 23:55 Dose: 125 mls/hr Documented by: Infusion: 11/03/21 23:55 Dose: 125 mls/hr Documented by: Admin: 11/03/21 16:35 Dose: 125 mls/hr Documented by: Infusion: 11/03/21 16:26 Dose: 125 mls/hr Documented by: Admin: 11/03/21 08:26 Dose: 125 mls/hr Documented by: BIJAL Ketorolac Tromethamine (Ketorolac 30 Mg/Ml Sdv) 30 mg IVPUSH Q6H [facility] Stop: 11/07/21 18:31 Last Admin: 11/04/21 09:47 Dose: 30 mg Documented by: LENCHO Ondansetron HCl (Ondansetron 4 Mg/2 Ml Sdv) 4 mg IV Q4H PRN PRN Reason: Nausea/Vomiting Oxycodone/Acetaminophen (Acetaminophen/Oxycodone 325-5 Mg Tab) 2 tab PO Q4H PRN PRN Reason: Pain (moderate 4-6) Last Admin: 11/04/21 03:45 Dose: 2 tab Documented by: Admin: 11/03/21 20:29 Dose: 2 tab Documented by: Admin: 11/03/21 16:01 Dose: 2 tab Documented by: Admin: 11/03/21 11:51 Dose: 2 tab Documented by: Admin: 11/03/21 05:41 Dose: 2 tab Documented by: Admin: 11/03/21 00:13 Dose: 2 tab Documented by: LANCE Sodium Chloride (Sodium Chloride 0.9% 10 Ml Syringe) 10 ml FLUSH ASDIRECTED PRN PRN Reason: Keep Vein Open Last Admin: 11/04/21 09:58 Dose: 10 ml Documented by: Admin: 11/04/21 00:15 Dose: 10 ml Documented by: Admin: 11/02/21 17:25 Dose: 10 ml Documented by: JUAN JOSÉ - Assessment Assessment (Free Text/Narrative):: Diverticulitis improving but WBC not decreasing yet - Plan Plan (Free Text/Narrative):: Cont IV antibiotics until WBC normal, then switch to po. Repeat CT scan if in couple days if WBC remains elevated.
[2021-11-04] MEDS ORDERED: oxyCODONE 5 MG Tab PO PRN (13:53)
[2021-11-04] MEDS ORDERED: Acetaminophen 500 MG Tab PO SCH (14:00)
[2021-11-04] MEDS ORDERED: NS + KCl 20mEq/L 1,000 ML IV SCH (14:00)
--- NOTE | 2021-11-04 14:31 | PCM.PN ---
- General Info Date of Service: 11/04/21 Subjective Update: Miguel states his pain is improved to 1/10, is hungry and would like to try some liquids. He is agreeable to trying Toradol scheduled as he has not used Percocet since around 3 am, then transition to oral Ibuprofen with Tylenol scheduled with oxycodone as needed for breakthrough pain. NO fevers, or chills. NO distention. Feels like he needs to pass gas. No nausea, or vomiting. Functional Status: Reports: Pain Controlled, Urinating - Patient Data Vitals - Most Recent: Last Vital Signs Temp 96.5 F L 11/04/21 12:00 Pulse 87 11/04/21 12:00 Resp 16 11/04/21 12:00 BP 125/65 11/04/21 12:00 Pulse Ox 95 11/04/21 12:00 Weight - Most Recent: 268 lb 1 oz I&O - Last 24 Hours: Intake & Output 11/03/21 11/04/21 11/04/21 22:59 06:59 14:59 Intake Total 497 1425 1328 Balance 497 1425 1328 Lab Results Last 24 Hours: Laboratory Results - last 24 hr 11/04/21 11/04/21 Range/Units 06:30 06:30 WBC 16.6 H (3.2-10.1) x10-3/uL RBC 3.20 L (3.90-5.90) x10(6)uL Hgb 11.1 L (12.9-17.7) g/dL Hct 32.3 L (38.3-50.1) % MCV 101.1 H (80.8-98.7) fL MCH 34.6 H (27.0-33.3) pg MCHC 34.2 (28.7-35.3) g/dL RDW 12.9 (12.4-15.0) % Plt Count 214 (117-477) x10(3)uL MPV 7.0 (6.7-11.0) fL Add Manual Diff Yes Neutrophils % (Manual) 84 H (46-82) % Lymphocytes % (Manual) 6 L (13-37) % Monocytes % (Manual) 10 (4-12) % Sodium 134 L (135-145) mmol/L Potassium 3.4 L (3.5-5.3) mmol/L Chloride 99 L (100-110) mmol/L Carbon Dioxide 25 (21-32) mmol/L BUN 9 (7-18) mg/dL Creatinine 0.8 (0.70-1.30) mg/dL Est Cr Clr Drug Dosing 158.23 mL/min Estimated GFR (MDRD) > 60 (>60) BUN/Creatinine Ratio 11.3 (9-20) Glucose 127 H (80-116) mg/dL Calcium 8.5 L (8.6-10.2) mg/dL Med Orders - Current: Current Medications Acetaminophen (Acetaminophen 500 Mg Tab) 500 mg PO Q6H [facility] Piperacillin Sod/Tazobactam (Sod 4.5 gm/ Sodium Chloride) 100 mls @ 200 mls/hr IV Q6H [facility] Last Admin: 11/04/21 13:48 Dose: 200 mls/hr Documented by: Sodium Chloride (Normal Saline) 1,000 mls @ 125 mls/hr IV ASDIRECTED [facility] Ibuprofen (Ibuprofen 200 Mg Tab) 200 mg PO Q6H [facility] Ondansetron HCl (Ondansetron 4 Mg/2 Ml Sdv) 4 mg IV Q4H PRN PRN Reason: Nausea/Vomiting Oxycodone HCl (Oxycodone 5 Mg Tab) 5 mg PO Q6H PRN PRN Reason: Breakthrough Pain Potassium Chloride (Potassium Chloride 20 Meq Tab.Er) 20 meq PO TID [facility] Sodium Chloride (Sodium Chloride 0.9% 10 Ml Syringe) 10 ml FLUSH ASDIRECTED PRN PRN Reason: Keep Vein Open Last Admin: 11/04/21 13:43 Dose: 10 ml Documented by: Discontinued Medications Hydromorphone HCl (Hydromorphone 2 Mg/Ml Sdv) 2 mg IVPUSH NOW STA Stop: 11/02/21 18:04 Last Admin: 11/02/21 20:19 Dose: Not Given Documented by: Hydromorphone HCl (Hydromorphone 2 Mg/Ml Sdv) 1 mg IVPUSH NOW STA Stop: 11/02/21 18:05 Last Admin: 11/02/21 18:26 Dose: 1 mg Documented by: Hydromorphone HCl (Hydromorphone 2 Mg/Ml Sdv) 1 mg IVPUSH Q4H PRN PRN Reason: Pain Sodium Chloride (Normal Saline) 1,000 mls @ 999 mls/hr IV ASDIRECTED [facility] Last Admin: 11/02/21 17:25 Dose: 999 mls/hr Documented by: Sodium Chloride (Normal Saline) 1,000 mls @ 125 mls/hr IV ASDIRECTED [facility] Last Admin: 11/03/21 07:35 Dose: 125 mls/hr Documented by: Piperacillin Sod/Tazobactam (Sod 4.5 gm/ Sodium Chloride) 100 mls @ 200 mls/hr IV Q6H [facility] Last Admin: 11/02/21 19:47 Dose: 200 mls/hr Documented by: Potassium Chloride/Sodium Chloride (Normal Saline With 20 Meq Kcl) 1,000 mls @ 125 mls/hr IV Q8H [facility] Last Admin: 11/04/21 09:44 Dose: 125 mls/hr Documented by: Iopamidol (Iopamidol 755 Mg/Ml 150 Ml Bottle) 150 ml IV ONETIME ONE Stop: 11/02/21 17:20 Last Admin: 11/02/21 17:46 Dose: 138 ml Documented by: Ketorolac Tromethamine (Ketorolac 30 Mg/Ml Sdv) 30 mg IVPUSH Q8H PRN PRN Reason: Pain Stop: 11/07/21 18:31 Last Admin: 11/04/21 00:12 Dose: 30 mg Documented by: Ketorolac Tromethamine (Ketorolac 30 Mg/Ml Sdv) 30 mg IVPUSH Q6H [facility] Stop: 11/07/21 18:31 Last Admin: 11/04/21 13:42 Dose: 30 mg Documented by: Morphine Sulfate (Morphine 4 Mg/Ml Vial) 4 mg IVPUSH NOW STA Stop: 11/02/21 17:15 Last Admin: 11/02/21 17:27 Dose: 4 mg Documented by: Ondansetron HCl (Ondansetron 4 Mg/2 Ml Sdv) 4 mg IVPUSH NOW STA Stop: 11/02/21 17:15 Last Admin: 11/02/21 17:25 Dose: 4 mg Documented by: Oxycodone/Acetaminophen (Acetaminophen/Oxycodone 325-5 Mg Tab) 2 tab PO Q4H PRN PRN Reason: Pain (moderate 4-6) Last Admin: 11/04/21 03:45 Dose: 2 tab Documented by: - Exam General: Alert, Oriented, Cooperative, No Acute Distress Lungs: Clear to Auscultation, Normal Respiratory Effort Cardiovascular: Regular Rate, Regular Rhythm GI/Abdominal Exam: Normal Bowel Sounds, Soft, Non-Tender, No Distention. No: Guarding, Rebound Extremities: No Pedal Edema - Patient Data Lab Results Last 24 hrs: Laboratory Results - last 24 hr 11/04/21 11/04/21 Range/Units 06:30 06:30 WBC 16.6 H (3.2-10.1) x10-3/uL RBC 3.20 L (3.90-5.90) x10(6)uL Hgb 11.1 L (12.9-17.7) g/dL Hct 32.3 L (38.3-50.1) % MCV 101.1 H (80.8-98.7) fL MCH 34.6 H (27.0-33.3) pg MCHC 34.2 (28.7-35.3) g/dL RDW 12.9 (12.4-15.0) % Plt Count 214 (117-477) x10(3)uL MPV 7.0 (6.7-11.0) fL Add Manual Diff Yes Neutrophils % (Manual) 84 H (46-82) % Lymphocytes % (Manual) 6 L (13-37) % Monocytes % (Manual) 10 (4-12) % Sodium 134 L (135-145) mmol/L Potassium 3.4 L (3.5-5.3) mmol/L Chloride 99 L (100-110) mmol/L Carbon Dioxide 25 (21-32) mmol/L BUN 9 (7-18) mg/dL Creatinine 0.8 (0.70-1.30) mg/dL Est Cr Clr Drug Dosing 158.23 mL/min Estimated GFR (MDRD) > 60 (>60) BUN/Creatinine Ratio 11.3 (9-20) Glucose 127 H (80-116) mg/dL Calcium 8.5 L (8.6-10.2) mg/dL Result Diagrams: 11/04/21 06:30 11/04/21 06:30 Sepsis Event Note - Evaluation Sepsis Screening Result: No Definite Risk - Focused Exam Vital Signs: Vital Signs Temp Temp Temp Pulse Resp BP Pulse Ox 11/04/21 12:00 96.5 F L 87 16 125/65 95 11/04/21 07:39 98.4 F 90 16 147/89 H 96 11/04/21 03:39 96.6 F L 90 16 141/82 H 95 - Problem List & Annotations (1) Diverticulitis SNOMED Code(s): 732316716 Code(s): K57.92 - DVTRCLI OF INTEST, PART UNSP, W/O PERF OR ABSCESS W/O BLEED Status: Acute Current Visit: Yes - Problem List Review Problem List Initiated/Reviewed/Updated: Yes - My Orders Last 24 Hours: My Active Orders 11/04/21 Breakfast Clear Liquid Diet [DIET] 11/04/21 13:53 oxyCODONE 5 mg PO Q6H PRN 11/04/21 14:00 Acetaminophen [Tylenol Extra Strength] 500 mg PO Q6H Ibuprofen [Motrin] 200 mg PO Q6H 11/04/21 18:00 Sodium Chloride 0.9% [Normal Saline] 1,000 ml IV ASDIRECTED 11/04/21 21:00 Potassium Chloride [Klor-Con M20] 20 meq PO TID 11/05/21 06:00 BASIC METABOLIC PANEL,BMP [CHEM] Routine CBC WITH AUTO DIFF [HEME] Routine - Plan Plan:: 1. Diverticulitis: Continue IV Zosyn, WBC 16.6, repeat CBC tomorrow. Once WBC down then can switch to oral Cipro/Flagyl, Dr Aguero recommended 7-14 days on oral and colonoscopy in 1 month. Toradol 30 mg IV q6h, then if tolerates diet, then change to Ibuprofen 200 mg with Tylenol 500 mg q6h and Oxycodone 5 mg q6h as needed breakthrough pain. 2. Hypokalemia: K 3.4, only come up 1 pt after 4 bags of IVF, advance diet and change to NS at 125 ml/hr and KCL 20 mEQ tid, repeat BMP tomorrow. 3. Diet: clears. 4. Disposition: IV antibiotics until WBC trends down, discharge once tolerating oral antibiotics.
[2021-11-04] MEDS: Ibuprofen 200 MG Tab PO SCH ×2 (17:00→21:23)
[2021-11-04] MEDS ORDERED: Acetaminophen 500 MG Tab PO PRN (17:43)
[2021-11-04] MEDS ORDERED: Sodium Chloride 0.9% 1,000 ML IV SCH (18:00)
[2021-11-04] MEDS: Potassium Chloride 20 MEQ Tab.ER PO SCH (21:25)
[2021-11-05] MEDS: Piperacillin/Tazobactam 4.5 GM in Sodium Chloride 0.9% 100 ML IV SCH ×4 (01:54→18:55)
[2021-11-05] MEDS: Ibuprofen 200 MG Tab PO SCH ×2 (01:55→07:27)
[2021-11-05] MEDS: Sodium Chloride 0.9% 10 ML Syringe FLUSH PRN ×3 (02:39→19:12)
[2021-11-05] MEDS: Potassium Chloride 20 MEQ Tab.ER PO SCH ×2 (09:23→13:48)
[2021-11-05] MEDS ORDERED: Ibuprofen 200 MG Tab PO PRN (09:37)
--- NOTE | 2021-11-05 11:38 | PCM.SURGPN ---
- General Info Date of Service: 11/05/21 - Review of Systems General: Reports: No Symptoms, Other (tolerating reg diet). Denies: Fever (since yesterday) Gastrointestinal: Reports: No Symptoms, Abdominal Pain (resolved) - Patient Data Vitals - Most Recent: Last Vital Signs Temp 97.6 F 11/05/21 07:00 Pulse 76 11/05/21 07:00 Resp 18 11/05/21 07:00 BP 148/104 H 11/05/21 07:00 Pulse Ox 96 11/05/21 07:00 Weight - Most Recent: 121.591 kg I&O - Last 24 Hours: Intake & Output 11/04/21 11/05/21 11/05/21 22:59 06:59 14:59 Intake Total 580 100 Balance 580 100 Lab Results Last 24 Hrs: Laboratory Results - last 24 hr 11/05/21 11/05/21 11/05/21 Range/Units 06:35 06:35 06:35 WBC 10.7 H (3.2-10.1) x10-3/uL RBC 3.28 L (3.90-5.90) x10(6)uL Hgb 11.2 L (12.9-17.7) g/dL Hct 33.3 L (38.3-50.1) % MCV 101.5 H (80.8-98.7) fL MCH 34.2 H (27.0-33.3) pg MCHC 33.6 (28.7-35.3) g/dL RDW 12.8 (12.4-15.0) % Plt Count 236 (117-477) x10(3)uL MPV 7.3 (6.7-11.0) fL Neut % (Auto) 75.9 H (40.3-71.8) % Lymph % (Auto) 12.3 L (15.8-45.3) % [place] % (Auto) 10.7 (5.5-15.2) % Eos % (Auto) 0.9 (0.1-6.8) % Baso % (Auto) 0.2 L (0.3-3.8) % Neut # (Auto) 8.1 H (1.7-6.9) x10-3/uL Lymph # (Auto) 1.3 (0.5-4.5) x10-3/uL [place] # (Auto) 1.2 (0.0-1.2) x10-3/uL Eos # (Auto) 0.1 (0.0-0.6) x10-3/uL Baso # (Auto) 0.0 (0.0-0.3) x10-3/uL Sodium 139 (135-145) mmol/L Potassium 3.2 L (3.5-5.3) mmol/L Chloride 103 (100-110) mmol/L Carbon Dioxide 28 (21-32) mmol/L BUN 6 L (7-18) mg/dL Creatinine 0.8 (0.70-1.30) mg/dL Est Cr Clr Drug Dosing 158.23 mL/min Estimated GFR (MDRD) > 60 (>60) BUN/Creatinine Ratio 7.5 L (9-20) Glucose 123 H (80-116) mg/dL Calcium 8.8 (8.6-10.2) mg/dL Magnesium 2.2 (1.8-2.5) mg/dL Med Orders - Current: Current Medications Acetaminophen (Acetaminophen 500 Mg Tab) 500 mg PO Q6H PRN PRN Reason: Pain/Fever Piperacillin Sod/Tazobactam (Sod 4.5 gm/ Sodium Chloride) 100 mls @ 200 mls/hr IV Q6H [facility] Last Admin: 11/05/21 07:26 Dose: 200 mls/hr Documented by: Ibuprofen (Ibuprofen 200 Mg Tab) 200 mg PO Q6H PRN PRN Reason: Pain/Fever Ondansetron HCl (Ondansetron 4 Mg/2 Ml Sdv) 4 mg IV Q4H PRN PRN Reason: Nausea/Vomiting Oxycodone HCl (Oxycodone 5 Mg Tab) 5 mg PO Q6H PRN PRN Reason: Breakthrough Pain Potassium Chloride (Potassium Chloride 20 Meq Tab.Er) 20 meq PO TID [facility] Last Admin: 11/05/21 09:23 Dose: 20 meq Documented by: Sodium Chloride (Sodium Chloride 0.9% 10 Ml Syringe) 10 ml FLUSH ASDIRECTED PRN PRN Reason: Keep Vein Open Last Admin: 11/05/21 02:39 Dose: 10 ml Documented by: Discontinued Medications Acetaminophen (Acetaminophen 500 Mg Tab) 500 mg PO Q6H [facility] Last Admin: 11/04/21 13:30 Dose: Not Given Documented by: Hydromorphone HCl (Hydromorphone 2 Mg/Ml Sdv) 2 mg IVPUSH NOW STA Stop: 11/02/21 18:04 Last Admin: 11/02/21 20:19 Dose: Not Given Documented by: Hydromorphone HCl (Hydromorphone 2 Mg/Ml Sdv) 1 mg IVPUSH NOW STA Stop: 11/02/21 18:05 Last Admin: 11/02/21 18:26 Dose: 1 mg Documented by: Hydromorphone HCl (Hydromorphone 2 Mg/Ml Sdv) 1 mg IVPUSH Q4H PRN PRN Reason: Pain Sodium Chloride (Normal Saline) 1,000 mls @ [facility] Admin: 11/02/21 17:25 Dose: 999 mls/hr Documented by: Sodium Chloride (Normal Saline) 1,000 mls @ [facility] Last Admin: 11/03/21 07:35 Dose: 125 mls/hr Documented by: Piperacillin Sod/Tazobactam (Sod 4.5 gm/ Sodium Chloride) 100 mls @ 200 mls/hr IV Q6H [facility] Last Admin: 11/02/21 19:47 Dose: 200 mls/hr Documented by: Potassium Chloride/Sodium Chloride (Normal Saline With 20 Meq Kcl) 1,000 mls @ 125 mls/hr IV Q8H [facility] Last Admin: 11/04/21 09:44 Dose: 125 mls/hr Documented by: Sodium Chloride (Normal Saline) 1,000 mls @ 125 mls/hr IV ASDIRECTED [facility] Ibuprofen (Ibuprofen 200 Mg Tab) 200 mg PO Q6H [facility] Last Admin: 11/05/21 07:27 Dose: 200 mg Documented by: Iopamidol (Iopamidol 755 Mg/Ml 150 Ml Bottle) 150 ml IV ONETIME ONE Stop: 11/02/21 17:20 Last Admin: 11/02/21 17:46 Dose: 138 ml Documented by: Ketorolac Tromethamine (Ketorolac 30 Mg/Ml Sdv) 30 mg IVPUSH Q8H PRN PRN Reason: Pain Stop: 11/07/21 18:31 Last Admin: 11/04/21 00:12 Dose: 30 mg Documented by: Ketorolac Tromethamine (Ketorolac 30 Mg/Ml Sdv) 30 mg IVPUSH Q6H [facility] Stop: 11/07/21 18:31 Last Admin: 11/04/21 13:42 Dose: 30 mg Documented by: Morphine Sulfate (Morphine 4 Mg/Ml Vial) 4 mg IVPUSH NOW STA Stop: 11/02/21 17:15 Last Admin: 11/02/21 17:27 Dose: 4 mg Documented by: Ondansetron HCl (Ondansetron 4 Mg/2 Ml Sdv) 4 mg IVPUSH NOW STA Stop: 11/02/21 17:15 Last Admin: 11/02/21 17:25 Dose: 4 mg Documented by: Oxycodone/Acetaminophen (Acetaminophen/Oxycodone 325-5 Mg Tab) 2 tab PO Q4H PRN PRN Reason: Pain (moderate 4-6) Last Admin: 11/04/21 03:45 Dose: 2 tab Documented by: - Exam GI/Abdominal Exam: Soft, Tender (to deep palpation in LLQ, much improved) Sepsis Event Note - Evaluation Sepsis Screening Result: No Definite Risk - Focused Exam Vital Signs: Vital Signs Temp Pulse Resp BP Pulse Ox 11/05/21 07:00 97.6 F 76 18 148/104 H 96 11/05/21 02:44 97.7 F 84 18 134/84 96 - Problem List & Annotations (1) Diverticulitis SNOMED Code(s): 006561081 Code(s): K57.92 - DVTRCLI OF INTEST, PART UNSP, W/O PERF OR ABSCESS W/O BLEED Status: Acute Current Visit: Yes - Problem List Review Problem List Initiated/Reviewed/Updated: Yes - My Orders Last 24 Hours: Active Orders 24 hr Category Date Time Status Regular Diet [DIET] Diet 11/05/21 Lunch Active BASIC METABOLIC PANEL,BMP [CHEM] Routine Lab 11/06/21 06:00 Ordered CBC WITH AUTO DIFF [HEME] Routine Lab 11/06/21 06:00 Ordered Acetaminophen [Tylenol Extra Strength] Med 11/04/21 17:43 Active 500 mg PO Q6H PRN Ibuprofen [Motrin] Med 11/05/21 09:37 Active 200 mg PO Q6H PRN Potassium Chloride [Klor-Con M20] Med 11/04/21 21:00 Active 20 meq PO TID oxyCODONE Med 11/04/21 13:53 Active 5 mg PO Q6H PRN Convert IV to Peripheral Lock [Convert IV to Saline Oth 11/05/21 09:36 Ordered Lock] [OM.PC] Routine Medication Orders Acetaminophen (Acetaminophen 500 Mg Tab) 500 mg PO Q6H PRN PRN Reason: Pain/Fever Piperacillin Sod/Tazobactam (Sod 4.5 gm/ Sodium Chloride) 100 mls @ 200 mls/hr IV Q6H [facility] Admin: 11/05/21 07:26 Dose: 200 mls/hr Documented by: Admin: 11/05/21 01:54 Dose: 200 mls/hr Documented by: Admin: 11/04/21 21:13 Dose: 200 mls/hr Documented by: Admin: 11/04/21 13:48 Dose: 200 mls/hr Documented by: Admin: 11/04/21 07:31 Dose: 200 mls/hr Documented by: Admin: 11/04/21 02:06 Dose: 200 mls/hr Documented by: Admin: 11/03/21 20:28 Dose: 200 mls/hr Documented by: Admin: 11/03/21 13:51 Dose: 200 mls/hr Documented by: Admin: 11/03/21 07:36 Dose: 200 mls/hr Documented by: Admin: 11/03/21 01:30 Dose: 200 mls/hr Documented by: LANCE Ibuprofen (Ibuprofen 200 Mg Tab) 200 mg PO Q6H PRN PRN Reason: Pain/Fever Ondansetron HCl (Ondansetron 4 Mg/2 Ml Sdv) 4 mg IV Q4H PRN PRN Reason: Nausea/Vomiting Oxycodone HCl (Oxycodone 5 Mg Tab) 5 mg PO Q6H PRN PRN Reason: Breakthrough Pain Potassium Chloride (Potassium Chloride 20 Meq Tab.Er) 20 meq PO TID [facility] Last Admin: 11/05/21 09:23 Dose: 20 meq Documented by: Admin: 11/04/21 21:25 Dose: 20 meq Documented by: MUEHNAN Sodium Chloride (Sodium Chloride 0.9% 10 Ml Syringe) 10 ml FLUSH ASDIRECTED PRN PRN Reason: Keep Vein Open Last Admin: 11/05/21 02:39 Dose: 10 ml Documented by: Admin: 11/04/21 21:54 Dose: 10 ml Documented by: Admin: 11/04/21 13:43 Dose: 10 ml Documented by: Admin: 11/04/21 09:58 Dose: 10 ml Documented by: Admin: 11/04/21 00:15 Dose: 10 ml Documented by: Admin: 11/02/21 17:25 Dose: 10 ml Documented by: JUAN JOSÉ - Assessment Assessment (Free Text/Narrative):: Diverticulitis, improving - Plan Plan (Free Text/Narrative):: Will plan swithcing to po antibiotics and discharge tomorrow
--- NOTE | 2021-11-05 14:18 | PCM.PN ---
- General Info Date of Service: 11/05/21 Subjective Update: No fever since last night at 1730. Tolerated diet so advanced to regular. No nausea or vomiting. Some loose stools. Using Ibuprofen for pain as needed. Functional Status: Reports: Pain Controlled, Tolerating Diet, Ambulating, Urinating - Patient Data Vitals - Most Recent: Last Vital Signs Temp 98.3 F 11/05/21 13:48 Pulse 82 11/05/21 12:00 Resp 16 11/05/21 12:00 BP 134/85 11/05/21 12:00 Pulse Ox 95 11/05/21 12:00 Weight - Most Recent: 268 lb 1 oz I&O - Last 24 Hours: Intake & Output 11/04/21 11/05/21 11/05/21 22:59 06:59 14:59 Intake Total 580 100 200 Balance 580 100 200 Lab Results Last 24 Hours: Laboratory Results - last 24 hr 11/05/21 11/05/21 11/05/21 Range/Units 06:35 06:35 06:35 WBC 10.7 H (3.2-10.1) x10-3/uL RBC 3.28 L (3.90-5.90) x10(6)uL Hgb 11.2 L (12.9-17.7) g/dL Hct 33.3 L (38.3-50.1) % MCV 101.5 H (80.8-98.7) fL MCH 34.2 H (27.0-33.3) pg MCHC 33.6 (28.7-35.3) g/dL RDW 12.8 (12.4-15.0) % Plt Count 236 (117-477) x10(3)uL MPV 7.3 (6.7-11.0) fL Neut % (Auto) 75.9 H (40.3-71.8) % Lymph % (Auto) 12.3 L (15.8-45.3) % [place] % (Auto) 10.7 (5.5-15.2) % Eos % (Auto) 0.9 (0.1-6.8) % Baso % (Auto) 0.2 L (0.3-3.8) % Neut # (Auto) 8.1 H (1.7-6.9) x10-3/uL Lymph # (Auto) 1.3 (0.5-4.5) x10-3/uL [place] # (Auto) 1.2 (0.0-1.2) x10-3/uL Eos # (Auto) 0.1 (0.0-0.6) x10-3/uL Baso # (Auto) 0.0 (0.0-0.3) x10-3/uL Sodium 139 (135-145) mmol/L Potassium 3.2 L (3.5-5.3) mmol/L Chloride 103 (100-110) mmol/L Carbon Dioxide 28 (21-32) mmol/L BUN 6 L (7-18) mg/dL Creatinine 0.8 (0.70-1.30) mg/dL Est Cr Clr Drug Dosing 158.23 mL/min Estimated GFR (MDRD) > 60 (>60) BUN/Creatinine Ratio 7.5 L (9-20) Glucose 123 H (80-116) mg/dL Calcium 8.8 (8.6-10.2) mg/dL Magnesium 2.2 (1.8-2.5) mg/dL Med Orders - Current: Current Medications Acetaminophen (Acetaminophen 500 Mg Tab) 500 mg PO Q6H PRN PRN Reason: Pain/Fever Piperacillin Sod/Tazobactam (Sod 4.5 gm/ Sodium Chloride) 100 mls @ 200 mls/hr IV Q6H [facility] Last Admin: 11/05/21 13:49 Dose: 200 mls/hr Documented by: Ibuprofen (Ibuprofen 200 Mg Tab) 200 mg PO Q6H PRN PRN Reason: Pain/Fever Last Admin: 11/05/21 13:48 Dose: 200 mg Documented by: Ondansetron HCl (Ondansetron 4 Mg/2 Ml Sdv) 4 mg IV Q4H PRN PRN Reason: Nausea/Vomiting Oxycodone HCl (Oxycodone 5 Mg Tab) 5 mg PO Q6H PRN PRN Reason: Breakthrough Pain Potassium Chloride (Potassium Chloride 20 Meq Tab.Er) 20 meq PO TID [facility] Last Admin: 11/05/21 13:48 Dose: 20 meq Documented by: Sodium Chloride (Sodium Chloride 0.9% 10 Ml Syringe) 10 ml FLUSH ASDIRECTED PRN PRN Reason: Keep Vein Open Last Admin: 11/05/21 13:49 Dose: 10 ml Documented by: Discontinued Medications Acetaminophen (Acetaminophen 500 Mg Tab) 500 mg PO Q6H [facility] Last Admin: 11/04/21 13:30 Dose: Not Given Documented by: Hydromorphone HCl (Hydromorphone 2 Mg/Ml Sdv) 2 mg IVPUSH NOW STA Stop: 11/02/21 18:04 Last Admin: 11/02/21 20:19 Dose: Not Given Documented by: Hydromorphone HCl (Hydromorphone 2 Mg/Ml Sdv) 1 mg IVPUSH NOW STA Stop: 11/02/21 18:05 Last Admin: 11/02/21 18:26 Dose: 1 mg Documented by: Hydromorphone HCl (Hydromorphone 2 Mg/Ml Sdv) 1 mg IVPUSH Q4H PRN PRN Reason: Pain Sodium Chloride (Normal Saline) 1,000 mls @ 999 mls/hr IV ASDIRECTED [facility] Last Admin: 11/02/21 17:25 Dose: 999 mls/hr Documented by: Sodium Chloride (Normal Saline) 1,000 mls @ 125 mls/hr IV ASDIRECTED [facility] Last Admin: 11/03/21 07:35 Dose: 125 mls/hr Documented by: Piperacillin Sod/Tazobactam (Sod 4.5 gm/ Sodium Chloride) 100 mls @ 200 mls/hr IV Q6H [facility] Last Admin: 11/02/21 19:47 Dose: 200 mls/hr Documented by: Potassium Chloride/Sodium Chloride (Normal Saline With 20 Meq Kcl) 1,000 mls @ 125 mls/hr IV Q8H [facility] Last Admin: 11/04/21 09:44 Dose: 125 mls/hr Documented by: Sodium Chloride (Normal Saline) 1,000 mls @ 125 mls/hr IV ASDIRECTED [facility] Ibuprofen (Ibuprofen 200 Mg Tab) 200 mg PO Q6H [facility] Last Admin: 11/05/21 07:27 Dose: 200 mg Documented by: Iopamidol (Iopamidol 755 Mg/Ml 150 Ml Bottle) 150 ml IV ONETIME ONE Stop: 11/02/21 17:20 Last Admin: 11/02/21 17:46 Dose: 138 ml Documented by: Ketorolac Tromethamine (Ketorolac 30 Mg/Ml Sdv) 30 mg IVPUSH Q8H PRN PRN Reason: Pain Stop: 11/07/21 18:31 Last Admin: 11/04/21 00:12 Dose: 30 mg Documented by: Ketorolac Tromethamine (Ketorolac 30 Mg/Ml Sdv) 30 mg IVPUSH Q6H [facility] Stop: 11/07/21 18:31 Last Admin: 11/04/21 13:42 Dose: 30 mg Documented by: Morphine Sulfate (Morphine 4 Mg/Ml Vial) 4 mg IVPUSH NOW STA Stop: 11/02/21 17:15 Last Admin: 11/02/21 17:27 Dose: 4 mg Documented by: Ondansetron HCl (Ondansetron 4 Mg/2 Ml Sdv) 4 mg IVPUSH NOW STA Stop: 11/02/21 17:15 Last Admin: 11/02/21 17:25 Dose: 4 mg Documented by: Oxycodone/Acetaminophen (Acetaminophen/Oxycodone 325-5 Mg Tab) 2 tab PO Q4H PRN PRN Reason: Pain (moderate 4-6) Last Admin: 11/04/21 03:45 Dose: 2 tab Documented by: - Exam General: Alert, Oriented, Cooperative, No Acute Distress Lungs: Clear to Auscultation, Normal Respiratory Effort Cardiovascular: Regular Rate, Regular Rhythm GI/Abdominal Exam: Normal Bowel Sounds, Soft, No Distention, Tender (deep palpation only, mild). No: Guarding, Rigid, Rebound (Male) Exam: Deferred Extremities: No Pedal Edema, Normal Capillary Refill - Patient Data Lab Results Last 24 hrs: Laboratory Results - last 24 hr 11/05/21 11/05/21 11/05/21 Range/Units 06:35 06:35 06:35 WBC 10.7 H (3.2-10.1) x10-3/uL RBC 3.28 L (3.90-5.90) x10(6)uL Hgb 11.2 L (12.9-17.7) g/dL Hct 33.3 L (38.3-50.1) % MCV 101.5 H (80.8-98.7) fL MCH 34.2 H (27.0-33.3) pg MCHC 33.6 (28.7-35.3) g/dL RDW 12.8 (12.4-15.0) % Plt Count 236 (117-477) x10(3)uL MPV 7.3 (6.7-11.0) fL Neut % (Auto) 75.9 H (40.3-71.8) % Lymph % (Auto) 12.3 L (15.8-45.3) % [place] % (Auto) 10.7 (5.5-15.2) % Eos % (Auto) 0.9 (0.1-6.8) % Baso % (Auto) 0.2 L (0.3-3.8) % Neut # (Auto) 8.1 H (1.7-6.9) x10-3/uL Lymph # (Auto) 1.3 (0.5-4.5) x10-3/uL [place] # (Auto) 1.2 (0.0-1.2) x10-3/uL Eos # (Auto) 0.1 (0.0-0.6) x10-3/uL Baso # (Auto) 0.0 (0.0-0.3) x10-3/uL Sodium 139 (135-145) mmol/L Potassium 3.2 L (3.5-5.3) mmol/L Chloride 103 (100-110) mmol/L Carbon Dioxide 28 (21-32) mmol/L BUN 6 L (7-18) mg/dL Creatinine 0.8 (0.70-1.30) mg/dL Est Cr Clr Drug Dosing 158.23 mL/min Estimated GFR (MDRD) > 60 (>60) BUN/Creatinine Ratio 7.5 L (9-20) Glucose 123 H (80-116) mg/dL Calcium 8.8 (8.6-10.2) mg/dL Magnesium 2.2 (1.8-2.5) mg/dL Result Diagrams: 11/05/21 06:35 11/05/21 06:35 Sepsis Event Note - Evaluation Sepsis Screening Result: No Definite Risk - Focused Exam Vital Signs: Vital Signs Temp Temp Temp Pulse Resp BP Pulse Ox 11/05/21 13:48 98.3 F 11/05/21 12:00 97.3 F 82 16 134/85 95 11/05/21 07:00 97.6 F 76 18 148/104 H 96 11/05/21 02:44 97.7 F 84 18 134/84 96 - Problem List & Annotations (1) Diverticulitis SNOMED Code(s): 493071779 Code(s): K57.92 - DVTRCLI OF INTEST, PART UNSP, W/O PERF OR ABSCESS W/O BLEED Status: Acute Current Visit: Yes - Problem List Review Problem List Initiated/Reviewed/Updated: Yes - My Orders Last 24 Hours: My Active Orders 11/04/21 13:53 oxyCODONE 5 mg PO Q6H PRN 11/04/21 17:43 Acetaminophen [Tylenol Extra Strength] 500 mg PO Q6H PRN 11/04/21 21:00 Potassium Chloride [Klor-Con M20] 20 meq PO TID 11/05/21 09:36 Convert IV to Peripheral Lock [Convert IV to Saline Lock] [OM.PC] Routine 11/05/21 09:37 Ibuprofen [Motrin] 200 mg PO Q6H PRN 11/05/21 Lunch Regular Diet [DIET] 11/06/21 06:00 BASIC METABOLIC PANEL,BMP [CHEM] Routine CBC WITH AUTO DIFF [HEME] Routine - Plan Plan:: 1. Diverticulitis: Continue IV Zosyn, WBC 10.7, repeat CBC tomorrow. Once WBC down then can switch to oral Cipro/Flagyl, Dr Aguero recommended 7-14 days on oral and follow up appt in 1 week and colonoscopy in 1 month. Discontinued Toradol and Percocet. Changed Tylenol & Ibuprofen to as needed. He has not used Oxycodone since ordered yesterday. Last dose of Percocet was 11/04 at 345 am. 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 Cipro 500 mg bid and Flagyl 500 mg q8h will start in am. Last dose of Zosyn tonight. 2. Hypokalemia: K 3.2, KCl 20 mEq tid, magnesium 2.2. repeat BMP tomorrow. 3. Diet: regular. 4. Disposition: discharge tomorrow on oral antibiotics.
--- NOTE | 2021-11-05 17:22 | PCM.DCSUM1 ---
Discharge Summary - Hospital Course HPI Initial Comments: This is a healthy 36-year-old male patient that 4 AM yesterday morning woke up with some abdominal pain, around the lower abdomen. He said he went back to sleep and then he got up and went to the bathroom had a bowel movement which was normal. After that he had really bad pain. He was seen in the clinic by Haydee Mcnulty and then sent to the ER to rule out an appendectomy. Had a CT scan that showed peritonitis possible diverticulitis with minimal abscess formation and perforation suggested. The ER doc call the surgeon in [place] who reviewed everything and told to put on n.p.o. and put on antibiotics for now and then observe. Patient is on pain pills and he says his feel a bit better. He says when he goes off the pain pills he has fevers and chills and sweats. He has no dysuria, pyuria, hematuria. No diarrhea or blood in his stool. History of diverticulitis. He says grandma had it. Diagnosis: Stroke: No - Discharge Data Discharge Date: 11/05/21 Discharge Disposition: Home, Self-Care 01 Condition: Fair - Referral to Home Health Primary Care Physician: Libra Ramirez NP - Discharge Diagnosis/Problem(s) (1) Diverticulitis SNOMED Code(s): 864426857 ICD Code: K57.92 - DVTRCLI OF INTEST, PART UNSP, W/O PERF OR ABSCESS W/O BLEED Status: Acute Current Visit: Yes Problem Details: improving (2) Hypokalemia SNOMED Code(s): 72077335 ICD Code: E87.6 - HYPOKALEMIA Status: Acute Current Visit: Yes - Patient Summary/Data Consults: Consultations 11/03/21 08:16 Consult to Physician [CONS] Routine Consulting Provider: Gregg Obrien Call Completed to Consulting Physician: Yes Hospital Course: Started on Zosyn on admission for diverticulitis, question of perforation with abscess on CT on admission, clinically did not show signs of acute abdomen. WBC on admission was 15.4, went up to 16.6 and today is 10.7. Temp of 101.2 on 11/04 1730, afebrile since then. He was NPO initially, advanced diet to clears on 11/04, then soft and regular diet today which he tolerated. He required Dilaudid, morphine and Percocet initially on admission and 11/03 throughout the day, last dose of Percocet was 11/04 at 345am, transitioned to Toradol scheduled then Tylenol & Ibuprofen scheduled then as needed. He had oxycodone as needed for breakthrough pain starting on 11/04 but did not require any doses of this for the remainder of his stay. Dr Aguero was consulted on admission, did not have any peritoneal signs on his exam, did not feel he needed surgery unless he was not responding to antibiotics. He had recommended IV Zosyn until WBC improved and switch to Cipro/Flagyl for 7-14 days, follow up in 1 week in clinic and schedule colonoscopy in 1 month. His kidney function remained normal while on Zosyn but his potassium was low 3.3, 3.4 and 3.2. He was on NS with KCL 20 mEQ at 125 ml/hr while he was NPO then once he tolerated diet he was switched to NS plain at 125 ml/hr and oral potassium 20 mEQ tid. Magnesium was 2.2. He has had some loose stools since admission while being on Zosyn, like cause of hypokalemia. Will discharge tonight after last Zosyn dose and will start Ciprofloxacin 500 mg bid and Metronidazole 500 mg q8h tomorrow for 7 days. Follow with Libra Ramirez for recheck of CBC & potassium this next week and Follow up with Dr Aguero on Sunday to recheck diverticulitis if he needs 7 more days of oral antibiotics. - Patient Instructions Diet: Usual Diet as Tolerated, No Alcoholic Beverages (while on Metronidazole) Activity: As Tolerated Driving: May Drive Today Showering/Bathing: May Shower Notify Provider of: Fever, Increased Pain, Nausea and/or Vomiting Other/Special Instructions: Follow up with Libra Ramirez Sun/ for recheck of CBC & potassium. Follow up with Dr Aguero on Sunday 11/11 for recheck of diverticulitis. Will have to call on Sunday for these appts. Start Ciprofloxacin & Metronidazole as prescribed tomorrow am, take until gone. No alcoholic beverages while taking Metronidazole, as it can cause nausea & vomiting. - Discharge Plan *PRESCRIPTION DRUG MONITORING PROGRAM REVIEWED*: Not Applicable *COPY OF PRESCRIPTION DRUG MONITORING REPORT IN PATIENT SPIKE: Not Applicable Prescriptions/Med Rec: Ciprofloxacin [Ciprofloxacin HCl] 500 mg PO BID #14 tab metroNIDAZOLE [Metronidazole] 500 mg PO Q8HR #21 tablet Home Medications: Home Meds Acetaminophen [Tylenol Extra Strength] 500 mg PO Q6H PRN tablet 11/05/21 [Rx] Ciprofloxacin [Ciprofloxacin HCl] 500 mg PO BID #14 tab 11/05/21 [Rx] Ibuprofen [Motrin] 200 mg PO Q6H PRN tablet 11/05/21 [Rx] metroNIDAZOLE [Metronidazole] 500 mg PO Q8HR #21 tablet 11/05/21 [Rx] Oxygen Therapy Mode: Room Air Patient Handouts: Diverticulitis, [id number], Fall Prevention in Hospitals, Adult, Sequential Compression Device, Venous Thromboembolism Prevention Forms: ED Department Discharge Referrals: Libra Ramirez NP [Primary Care Provider] - Nomi Aguero MD [Physician] - - Discharge Summary/Plan Comment DC Time >30 min.: No Total # of Minutes for Discharge Time: 20 min - General Info Date of Service: 11/05/21 Subjective Update: feeling well, tolerated regular diet, wants to go home. - Patient Data Vitals - Most Recent: Last Vital Signs Temp 98.3 F 11/05/21 13:48 Pulse 82 11/05/21 12:00 Resp 16 11/05/21 12:00 BP 134/85 11/05/21 12:00 Pulse Ox 95 11/05/21 12:00 Weight - Most Recent: 268 lb 1 oz I&O - Last 24 hours: Intake & Output 11/05/21 11/05/21 11/05/21 06:59 14:59 22:59 Intake Total 100 300 Balance 100 300 Lab Results - Last 24 hrs: Laboratory Results - last 24 hr 11/05/21 11/05/21 11/05/21 Range/Units 06:35 06:35 06:35 WBC 10.7 H (3.2-10.1) x10-3/uL RBC 3.28 L (3.90-5.90) x10(6)uL Hgb 11.2 L (12.9-17.7) g/dL Hct 33.3 L (38.3-50.1) % MCV 101.5 H (80.8-98.7) fL MCH 34.2 H (27.0-33.3) pg MCHC 33.6 (28.7-35.3) g/dL RDW 12.8 (12.4-15.0) % Plt Count 236 (117-477) x10(3)uL MPV 7.3 (6.7-11.0) fL Neut % (Auto) 75.9 H (40.3-71.8) % Lymph % (Auto) 12.3 L (15.8-45.3) % [place] % (Auto) 10.7 (5.5-15.2) % Eos % (Auto) 0.9 (0.1-6.8) % Baso % (Auto) 0.2 L (0.3-3.8) % Neut # (Auto) 8.1 H (1.7-6.9) x10-3/uL Lymph # (Auto) 1.3 (0.5-4.5) x10-3/uL [place] # (Auto) 1.2 (0.0-1.2) x10-3/uL Eos # (Auto) 0.1 (0.0-0.6) x10-3/uL Baso # (Auto) 0.0 (0.0-0.3) x10-3/uL Sodium 139 (135-145) mmol/L Potassium 3.2 L (3.5-5.3) mmol/L Chloride 103 (100-110) mmol/L Carbon Dioxide 28 (21-32) mmol/L BUN 6 L (7-18) mg/dL Creatinine 0.8 (0.70-1.30) mg/dL Est Cr Clr Drug Dosing 158.23 mL/min Estimated GFR (MDRD) > 60 (>60) BUN/Creatinine Ratio 7.5 L (9-20) Glucose 123 H (80-116) mg/dL Calcium 8.8 (8.6-10.2) mg/dL Magnesium 2.2 (1.8-2.5) mg/dL Med Orders - Current: Current Medications Acetaminophen (Acetaminophen 500 Mg Tab) 500 mg PO Q6H PRN PRN Reason: Pain/Fever Ciprofloxacin (Ciprofloxacin 500 Mg Tab) 500 mg PO BID [facility] Piperacillin Sod/Tazobactam (Sod 4.5 gm/ Sodium Chloride) 100 mls @ 200 mls/hr IV Q6H [facility] Stop: 11/05/21 23:59 Last Admin: 11/05/21 13:49 Dose: 200 mls/hr Documented by: Ibuprofen (Ibuprofen 200 Mg Tab) 200 mg PO Q6H PRN PRN Reason: Pain/Fever Last Admin: 11/05/21 13:48 Dose: 200 mg Documented by: Metronidazole (Metronidazole 500 Mg Tab) 500 mg PO Q8H [facility] Ondansetron HCl (Ondansetron 4 Mg/2 Ml Sdv) 4 mg IV Q4H PRN PRN Reason: Nausea/Vomiting Oxycodone HCl (Oxycodone 5 Mg Tab) 5 mg PO Q6H PRN PRN Reason: Breakthrough Pain Potassium Chloride (Potassium Chloride 20 Meq Tab.Er) 20 meq PO TID [facility] Last Admin: 11/05/21 13:48 Dose: 20 meq Documented by: Sodium Chloride (Sodium Chloride 0.9% 10 Ml Syringe) 10 ml FLUSH ASDIRECTED PRN PRN Reason: Keep Vein Open Last Admin: 11/05/21 13:49 Dose: 10 ml Documented by: Discontinued Medications Acetaminophen (Acetaminophen 500 Mg Tab) 500 mg PO Q6H [facility] Last Admin: 11/04/21 13:30 Dose: Not Given Documented by: Hydromorphone HCl (Hydromorphone 2 Mg/Ml Sdv) 2 mg IVPUSH NOW STA Stop: 11/02/21 18:04 Last Admin: 11/02/21 20:19 Dose: Not Given Documented by: Hydromorphone HCl (Hydromorphone 2 Mg/Ml Sdv) 1 mg IVPUSH NOW STA Stop: 11/02/21 18:05 Last Admin: 11/02/21 18:26 Dose: 1 mg Documented by: Hydromorphone HCl (Hydromorphone 2 Mg/Ml Sdv) 1 mg IVPUSH Q4H PRN PRN Reason: Pain Sodium Chloride (Normal Saline) 1,000 mls @ 999 mls/hr IV ASDIRECTED [facility] Last Admin: 11/02/21 17:25 Dose: 999 mls/hr Documented by: Sodium Chloride (Normal Saline) 1,000 mls @ 125 mls/hr IV ASDIRECTED [facility] Last Admin: 11/03/21 07:35 Dose: 125 mls/hr Documented by: Piperacillin Sod/Tazobactam (Sod 4.5 gm/ Sodium Chloride) 100 mls @ 200 mls/hr IV Q6H [facility] Last Admin: 11/02/21 19:47 Dose: 200 mls/hr Documented by: Potassium Chloride/Sodium Chloride (Normal Saline With 20 Meq Kcl) 1,000 mls @ 125 mls/hr IV Q8H [facility] Last Admin: 11/04/21 09:44 Dose: 125 mls/hr Documented by: Sodium Chloride (Normal Saline) 1,000 mls @ 125 mls/hr IV ASDIRECTED [facility] Ibuprofen (Ibuprofen 200 Mg Tab) 200 mg PO Q6H [facility] Last Admin: 11/05/21 07:27 Dose: 200 mg Documented by: Iopamidol (Iopamidol 755 Mg/Ml 150 Ml Bottle) 150 ml IV ONETIME ONE Stop: 11/02/21 17:20 Last Admin: 11/02/21 17:46 Dose: 138 ml Documented by: Ketorolac Tromethamine (Ketorolac 30 Mg/Ml Sdv) 30 mg IVPUSH Q8H PRN PRN Reason: Pain Stop: 11/07/21 18:31 Last Admin: 11/04/21 00:12 Dose: 30 mg Documented by: Ketorolac Tromethamine (Ketorolac 30 Mg/Ml Sdv) 30 mg IVPUSH Q6H [facility] Stop: 11/07/21 18:31 Last Admin: 11/04/21 13:42 Dose: 30 mg Documented by: Morphine Sulfate (Morphine 4 Mg/Ml Vial) 4 mg IVPUSH NOW STA Stop: 11/02/21 17:15 Last Admin: 11/02/21 17:27 Dose: 4 mg Documented by: Ondansetron HCl (Ondansetron 4 Mg/2 Ml Sdv) 4 mg IVPUSH NOW STA Stop: 11/02/21 17:15 Last Admin: 11/02/21 17:25 Dose: 4 mg Documented by: Oxycodone/Acetaminophen (Acetaminophen/Oxycodone 325-5 Mg Tab) 2 tab PO Q4H PRN PRN Reason: Pain (moderate 4-6) Last Admin: 11/04/21 03:45 Dose: 2 tab Documented by: - Exam General: Reports: Alert, Oriented, Cooperative, No Acute Distress Lungs: Reports: Clear to Auscultation, Normal Respiratory Effort Cardiovascular: Reports: Regular Rate, Regular Rhythm GI/Abdominal Exam: Normal Bowel Sounds, Soft, No Distention, Tender (deep palpation LLQ). No: Guarding
[2021-11-06] MEDS ORDERED: metroNIDAZOLE 500 MG Tab PO SCH (06:00)
[2021-11-06] MEDS ORDERED: Ciprofloxacin 500 MG Tab PO SCH (09:00)
== END 2021-11-05 19:18 | disposition home or self-care (01) | DRG 392 ==
LOC: FB.ED 16:56 → FB.MS 18:45 → OBSVTOIN 11-03 09:45
PROVIDERS: ADMIT Family Medicine; ATTEND Family Medicine
DX: K57.20 Diverticulitis of large intestine with perforation and abscess without bleeding (principal); E87.6 Hypokalemia; K52.9 Noninfective gastroenteritis and colitis, unspecified; E66.9 Obesity, unspecified; Z68.32 Body mass index [BMI] 32.0-32.9, adult
CPT/HCPCS: 36415; 74177; 80048; 81001; 83735; 85025; A9270-GY; J1170; J1885; J2270; J2405; J2543; J3480; J7030; Q9967

== ENCOUNTER 2024-10-21 08:37 | Emergency (ER) | payer OTHER ==
[2024-10-21] MEDS ORDERED: Sodium Chloride 0.9% 10 ML Syringe FLUSH PRN (08:58)
[2024-10-21] MEDS: Sodium Chloride 0.9% 1,000 ML IV ONE (09:17)
[2024-10-21 09:26] LABS: HEMATOCRIT 42.9 % (38.3-50.1); HEMOGLOBIN 14.9 g/dL (12.9-17.7); MEAN CORPUSCULAR HEMOGLOBIN 35.3 pg (27.0-33.3); MEAN CORPUSCULAR HGB CONC 34.7 g/dL (28.7-35.3); MEAN CORPUSCULAR VOLUME 101.6 fL (80.8-98.7); MEAN PLATELET VOLUME 7.5 fL (6.7-11.0); PLATELET COUNT,PLT 208 x10(3)uL (117-477); RED BLOOD CELL COUNT 4.22 x10(6)uL (3.90-5.90); RED CELL DISTRIBUTION WIDTH 12.9 % (12.4-15.0); WHITE BLOOD CELL COUNT,WBC 15.5 x10-3/uL (3.2-10.1)
[2024-10-21 09:34] LABS: BLOOD UREA NITROGEN,BUN 16 mg/dL (7-18); BUN/CREATININE RATIO 14.5 (9-20); CARBON DIOXIDE,CO2 26 mmol/L (21-32); CHLORIDE,CL 100 mmol/L (100-110); CREATININE 1.1 mg/dL (0.70-1.30); ESTIMATED GFR 88 mL/min (>60); GLUCOSE RANDOM 152 mg/dL (80-116); POTASSIUM,K 3.8 mmol/L (3.5-5.3); SODIUM,NA 137 mmol/L (135-145)
[2024-10-21 09:39] LABS: A/G RATIO 1.1; ALANINE AMINOTRANSFERASE,ALT 63 U/L (12-36); ALKALINE PHOSPHATASE 84 IU/L (56-112); ASPARTATE AMNIOTRANSFERASE,AST 44 IU/L (5-25); BILIRUBIN TOTAL 1.6 mg/dL (0.1-1.3); PROTEIN TOTAL,TP 7.6 g/dL (6.0-8.0)
[2024-10-21] MEDS: Iopamidol 755 Mg/ML 100 ML Bottle IV SCH (09:39)
[2024-10-21 09:51] LABS: BAND PERCENT MAN 14 % (0-6); LYMPHOCYTES PERCENT MAN 2 % (13-37); MONOCYTES PERCENT MAN 3 % (4-12); SEG NEUTROPHILS PERCENT MAN 81 % (46-82)
[2024-10-21 09:52] LABS: STOMATOCYTES MANY
[2024-10-21] MEDS: Piperacillin/Tazobactam 4.5 GM in Sodium Chloride 0.9% 100 ML IV ONE (10:48)
[2024-10-21 10:53] LABS: BILIRUBIN,URINE NEGATIVE (NEGATIVE); GLUCOSE,URINE NORMAL (NORMAL); KETONES,URINE NEGATIVE (NEGATIVE); LEUKOCYTE ESTERASE,URINE NEGATIVE (NEGATIVE); NITRITE,URINE NEGATIVE (NEGATIVE); OCCULT BLOOD,URINE TRACE (NEGATIVE); PH,URINE 6.5 (5.0-6.5); PROTEIN,URINE TRACE mg/dL (NEGATIVE); UROBILINOGEN,URINE NORMAL (NEGATIVE)
[2024-10-21 10:58] LABS: LACTIC ACID 2.7 mmol/L (0.4-2.0)
[2024-10-21 11:00] LABS: APPEARANCE,URINE CLEAR (CLEAR); COLOR,URINE YELLOW (YELLOW)
[2024-10-21 11:08] LABS: EPITHELIAL CELLS,URINE RARE; RBC,URINE 0-5 (0-5); WBC,URINE 0-5 (0-5)
[2024-10-21 11:09] LABS: BACTERIA,URINE NOT SEEN (NS)
[2024-10-21] MEDS ORDERED: Ketorolac 15 MG/ML SDV IVPUSH ONE (12:41)
[2024-10-21] MEDS: Ondansetron 4 MG/2 ML SDV IVPUSH ONE (12:55)
[2024-10-21] MEDS: Ketorolac 30 MG/ML SDV IVPUSH ONE (12:58)
== END 2024-10-21 13:38 ==
LOC: FB.ED 08:37
DX: K57.20 Diverticulitis of large intestine with perforation and abscess without bleeding (principal); D58.8 Other specified hereditary hemolytic anemias; R74.8 Abnormal levels of other serum enzymes; E66.9 Obesity, unspecified; F17.210 Nicotine dependence, cigarettes, uncomplicated; Z90.89 Acquired absence of other organs; Z79.899 Other long term (current) drug therapy
CPT/HCPCS: 36415; 74177; 80053; 81001; 83605; 83690; 85025; 86140; 87040; 96361; 96365; 96375; 99285; 99285-25; J1885; J2405; J2543; J3490; J7030; Q9967